=== PATIENT | male | born 1950 | race Caucasian/White ===

== ENCOUNTER → 2018-01-03 12:57 | Outpatient (CLI) | payer OTHER, SELFPAY ==
--- NOTE | 2018-01-03 13:01 | VDLE_ITS ---
Reason For Study: RLE pain (posterior knee) RIGHT LEFT GSV is normal. CFV is compressible, spontaneous, phasic, CFV is compressible, spontaneous, phasic, competent, and demonstrates normal competent and demonstrates normal augmentation. augmentation. FV is compressible, spontaneous, phasic, competent and demonstrates normal augmentation. POP V is compressible, spontaneous, phasic, competent and demonstrates normal augmentation. T/P Trunk is compressible. PTV is compressible. RT PerV is compressible. Procedure Exam performed in department. The exam was diagnostic. A preliminary report was called and/or faxed to Dr. Reyes @ 1:25 pm. Interpretation Summary Deep veins of the right lower extremity are patent and compressible segmentally. There is no evidence of right lower extremity deep vein thrombosis. Valvular competence appears intact within the proximal deep venous system on the right . The right greater saphenous vein appears patent and compressible segmentally. Ordering Physician: Zoë Reyes Referring Physician: Zoë Reyes Performed By: Zahra Peres, NOREEN, RVT
== END ==
PROVIDERS: Family Provider Internal Medicine; PCP Internal Medicine; Visit Provider Internal Medicine
DX: M25.561 Pain in right knee (principal)
CPT/HCPCS: 93971

== ENCOUNTER → 2018-03-06 08:41 | Outpatient (CLI) | payer OTHER, SELFPAY ==
--- NOTE | 2018-03-06 08:45 | CT_ITS ---
STUDY: CT ABDOMEN AND PELVIS WITH CONTRAST REASON FOR EXAM: Male, 67 years old. Left lower quadrant pain. RADIATION DOSAGE (If Supplied By Facility): CTDIvol = ( 9.65 ) mGy, DLP = ( 726.42 ) mGycm TECHNIQUE: Transaxial images were obtained from the dome of the diaphragm to the symphysis pubis with oral contrast. 100ml ml of Isovue 300 contrast was administered. Sagittal and coronal images were reconstructed. Individualized dose optimization techniques were used for this CT. COMPARISON: Comparison is made with prior study dated July 27, 2014. FINDINGS: The visualized lung bases are unremarkable. The visualized portions of the heart are within normal limits. Normal liver. Normal gallbladder and extrahepatic biliary system. Normal spleen. Normal pancreas. Normal bilateral adrenal glands. Normal right kidney. 1 cm cyst in the lateral midportion of the left kidney. Normal visualized stomach. Normal small intestine. There is diverticulosis, with thickening of the colon wall, and pericolonic inflammation changes consistent with acute diverticulitis. No abscess or fluid collection is seen. The appendix is visualized and appears normal. There is scattered atherosclerotic calcification of the abdominal aorta, without a demonstrated aneurysm. Normal inferior vena cava. There is borderline retroperitoneal lymphadenopathy with enlarged nodes no greater than 10mm in the short axis diameter. Normal urinary bladder. There are prostatic calcifications. There is a small umbilical hernia containing fat. Mild anterior listhesis of L4 on L5 with spondylolysis of the pars interarticularis at the L4 vertebrae. CT/Abdomen/Pelvis WITH Contrast IMPRESSION: Findings in keeping with a noncomplicated acute sigmoid diverticulitis. Electronically Signed: Catracho Andrew MD at 11:29 EDT Tel [phone], Service support ,
== END ==
PROVIDERS: Family Provider Internal Medicine; PCP Internal Medicine; Visit Provider Nurse Practitioner Gerontology
DX: K57.32 Diverticulitis of large intestine without perforation or abscess without bleeding (principal)
CPT/HCPCS: 74177; Q9967; A4216

== ENCOUNTER → 2018-04-28 10:22 | Outpatient (CLI) | payer OTHER, SELFPAY ==
[2018-04-28 11:46] LABS: AST(SGOT) 21 U/L (15-37); Alanine Aminotransfer ALT/SGPT 29 U/L (16-61); Albumin, Serum 3.6 g/dL (3.2-5.0); Alkaline Phosphatase 60 U/L (45-117); Bilirubin, Direct 0.08 mg/dL (0.00-0.30); Cholesterol 177 mg/dL (200); Globulin 3.9 g/dL (2.2-4.2); High Density Lipoprotein 45 mg/dL; Protein, Total 7.5 g/dL (6.4-8.2); Triglycerides 167 mg/dL; Very Low Density Lipoprotein 33 mg/dL (5-40)
== END ==
PROVIDERS: Family Provider Internal Medicine; PCP Internal Medicine; Visit Provider Internal Medicine Cardiovascular Disease
DX: E78.5 Hyperlipidemia, unspecified (principal)
CPT/HCPCS: 36415; 80061; 80076

== ENCOUNTER → 2018-06-12 05:55 | Outpatient (CLI) | payer OTHER, SELFPAY | PROVIDERS: Family Provider Internal Medicine; PCP Internal Medicine; Visit Provider Nurse Practitioner | DX: M25.561 Pain in right knee (principal) | CPT/HCPCS: 73721 ==

== ENCOUNTER → 2018-06-20 08:51 | Outpatient (CLI) | payer OTHER, SELFPAY ==
[2018-06-20 11:01] LABS: Pathologist Comment May follow
[2018-06-20 11:22] LABS: Synovial Fld Mononuclear WBC % 85.9 %; Synovial Fld Polynuclear WBC % 14.1 %
[2018-06-20 11:31] LABS: AUTO B FLUID DILUENT BKGD CT WBC <0.1 RBC <0.01 (W<.1,R<.01); RBC /Synovial Fluid 195 /mm3 (0)
[2018-06-20 11:32] LABS: Appearance /Synovial Fluid Clear (CLEAR); Color / Synovial Fluid Yellow (Pale Yellow); Source / Synovial Fluid RT KNEE; Source- Body Fluid SYNOVIAL; Viscosity / Synovial Fluid Sl. Viscous (HIGH)
[2018-06-20 12:30] LABS: Lymph 22 %; Monocyte /Synovial Fluid 6 %; Neutrophil 0 % (0-25); Other Cell /Synovial Fluid 72 %
[2018-06-20 12:31] LABS: Body Fluid QC Type(s) BF2Q,BF3Q
[2018-06-23 12:44] LABS: GLUCOSE, SYNOVIAL FLUID 89 mg/dL (.); PROTEIN, SYNOVIAL FLUID 3.2 g/dL (.)
[2018-06-24 15:41] LABS: Pathologist Review Reviewed
== END ==
PROVIDERS: Family Provider Internal Medicine; PCP Internal Medicine; Visit Provider Orthopaedic Surgery
DX: M17.11 Unilateral primary osteoarthritis, right knee (principal)
CPT/HCPCS: 73564; 82945; 84157; 87070; 87075; 87205; 89050; 89051; 89060

== ENCOUNTER 2018-07-11 08:00 | Outpatient (RCR) | payer OTHER, SELFPAY ==
--- NOTE | 2018-06-11 09:32 | HP.PTEVAL_ITS ---
Patient's Visit Information DENNIS TEMPLE is a 67 year old M referred to Physical Therapy by Marlene Britt with a diagnosis of R knee pain.. Date of Evaluation: 06/11/18 Physical Therapist: Edmundo Elliott DPT, OC - Visit Plan Frequency: 3x /Week Duration: 2-4 Weeks Plan: 3x/week for 2-4 for. R knee ROM, progress to stretching and strengthening , ensure apporp activity modification to heal and progress back to activitiy as tolerated(kneel and stand and stoop to tolerance). ice - Subjective Subjective: Saturday last could not go to wrok and could not put weight through R leg adn could not bend it. Pain was in the knee. Was comfortable at rest. This started back in December and saw Cuong and didn't find anything wrong. Borrowed crutches on Saturday and iced it that day and Saturday and for the weekend. Was able to walk yesterday. Stepping off a curb or stepping over something give hime issues but other ceballos he is good today and yesterday. Pain has been medial and lateral and anterior over the last number of months. It swelled up last Saturday but is much better today. 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 Two weeks ago got worse getting down on knee and turning to get back out from under the table caused pain. sitting down to use bathroom at work and getting up hurt. Usually worse nt he morning but can work itself out after two hours or so. Sleep is fine. Saw [facility] Saturday morning and sent for therapy and ordered MRI tomorrow and will see Manav on 06/20/18. Is off work until Saturday. - Pain R knee Pain Intensity (Out of 10): 0 Pain Intensity Range: 0, 6 Comment: movement restricting transiently 2-15 minutes. - Objective R knee AROM -2 to 100 and L is 0-115. Antalgia with R slightly today with gait but I and trasnitions are I. reflexes 2/3 patella and achilles. strength is 4/ 5 in B LE and hips and knees, R knee ext hurts at end range. Patellar moves wella nd without pain. slight positive R disco test, slight positive bounce home, - anterior drawer, - patella grind, - scour. Some swelling present medial andterior joint. Tender posterior lateral joint line to palpation. - Goals Goal 1:: Full R knee RO?m and no swelling. Goal Time Frame: 4-6 Weeks Goal 2:: Walk without antalgia Goal Time Frame: 4-6 Weeks Goal 3:: Back to work without increased Goal Time Frame: 4-6 Weeks Goal 4:: Pt feel 100% back to normal and be I in management of his knee. Goal Time Frame: 4-6 Weeks - Rehabilitation Potential Physical Therapy Diagnosis: R knee pain possibly meniscus. Rehabilitation Potential: Fair - Anticipated Interventions Patient/Client Instruction: Educate patient on: Condition, Plan of Care For the Purpose of:: To decrease pain, To increase ROM, To improve muscle performance and motor function Therapeutic Exercise to Include: Strength training, Flexibilty training, Gait and locomotor training, Passive ROM, Active ROM Comment: return to work acitivity. For the Purpose of:: To decrease pain, To improve muscle performance and motor function, To improve ability of physical actions for home/community/work/leisure Cryotherapy (ice pack, ice massage): Yes For the Purpose of:: To decrease swelling/inflammation Thank you for the opportunity to evaluate your patient. For Medicare and Medicare HMO plans, please review the plan of care and approve it. It will need to be FAXED BACK to us at [phone] for Medicare purposes. Please let me know if there are questions or concerns regarding this plan of care. Physician Signature: Date:
--- NOTE | 2018-07-11 08:38 | HP.PTDCSUM_ITS ---
HP - PT D/C Summary It has been my pleasure to treat DENNIS TEMPLE under orders from Marlene Britt , for the diagnosis of R knee pain. for a total of 6 visit(s). Discharge Date: 07/11/18 Please see the following information for a summary of their discharge status. - Subjective Subjective: Had two incidences that needed crutches for 3 hours and then it went away. This was after getting down on knees at work. Wasn't locked up but very painful. Couldn't put weight on it. That was last . Saw Dr.. Em 2x. In between these episodes felt pretty good and not limited activity ceballos. Slightly painful but intermittent and not severe. Doctor may want to clean it out if it happens again. Will see her next . Has felt really good the last three days without any issues except minor ache. Is being careful. Been doign exercises at home SOME, every toher day. - Pain R knee Pain Intensity (Out of 10): 0 - Overall Improvement % Improvement: 90 - Objective Objective/Function: Full aROM R knee, strength 5/5 in hip and knee without pain today. Walks withotu antalgia, steps reciprocally with no pain. OVERALL DOING EXCELLENT TODAY AND HOPES TO BUILD CONSISTENCY WITH THAT OVER THE NEXT WEEK BEFORE DOCTOR F/U. SOUNDS LIKE MECHANICAL DERANGEMENT IN KNEE CAUSES HIM INTERMITTENT PROBLEMS FOR SHORTER DURATIONS. - Goals Goal 1:: Full R knee RO?m and no swelling. Goal Progress: Goal Met Goal 2:: Walk without antalgia Goal Progress: met today. Goal 3:: Back to work without increased Goal Progress: intermittent problems Goal 4:: Pt feel 100% back to normal and be I in management of his knee. Goal Progress: Progressing - Plan Plan: D/C to [facility] - D/C Information Discharge Comments: Pt doing well with strength and ROM and function. Has intermittent problems that sound like mechanical derangements but has been as good as ever the last 3-4 days. Will see doctor next week. If there are questions or concerns regarding this patient's physical therapy, please feel free to call me at [phone]. Thank you for the referral of this patient. Sincerely, Edmundo Elliott, DPT, OC
== END 2018-07-11 19:00 | disposition home or self-care (01) ==
LOC: PT 08:00
PROVIDERS: Family Provider Internal Medicine; PCP Internal Medicine; Visit Provider Nurse Practitioner
DX: M25.561 Pain in right knee (principal)
CPT/HCPCS: 97110; 97162; 97530

== ENCOUNTER → 2019-02-17 11:01 | Outpatient (CLI) | payer OTHER, SELFPAY ==
[2019-01-22 10:26] VITALS: BMI 31.1
--- NOTE | 2019-02-17 11:10 | CT_ITS ---
STUDY: CT ABDOMEN AND PELVIS WITH CONTRAST REASON FOR EXAM: Male, 68 years old. Left flank pain and left lower quadrant pain. Recent injury. RADIATION DOSAGE (If Supplied By Facility): CTDIvol = ( 19.42 ) mGy, DLP = ( 1214.94 ) mGycm TECHNIQUE: Transaxial images were obtained from the dome of the diaphragm to the symphysis pubis without oral contrast. 100ml IV Isovue 300 was administered. Sagittal and coronal images were reconstructed. Individualized dose optimization techniques were used for this CT. COMPARISON: Comparison is made with prior study dated March 06, 2018. FINDINGS: Minimal linear scarring and/or atelectasis in the anterior medial aspect of the right lower lobe. The visualized portions of the heart are within normal limits. There is decreased attenuation of the liver consistent with steatosis. Normal gallbladder and extrahepatic biliary system. Normal spleen. Normal pancreas. Normal bilateral adrenal glands. Normal right kidney. Normal left kidney. There is a small hiatal hernia. Normal small intestine. There are scattered colonic diverticula consistent with diverticulosis. The appendix is visualized and appears normal. There is scattered atherosclerotic calcification of the abdominal aorta, without a demonstrated aneurysm. Normal inferior vena cava. There is borderline retroperitoneal lymphadenopathy with enlarged nodes no greater than 10mm in the short axis diameter. Normal urinary bladder. There is enlargement of the prostate gland. Central prostatic calcifications. Normal abdominal wall. Stable anterior listhesis of L4 on L5. CT/Abdomen/Pelvis WITH Contrast IMPRESSION: Fatty infiltration of the liver. No acute abnormality is seen. Electronically Signed: Catracho Andrew, at 12:42 EDT , Service support ,
[2019-02-17 11:26] LABS: CREATININE FINGERSTICK 1.2 mg/dL (0.70-1.30); EGFR FINGERSTICK > 60.0000 mL/min (>60)
--- NOTE | 2019-02-17 11:32 | VDLE_ITS ---
Reason For Study: Leg pain RIGHT LEFT CFV is compressible, spontaneous, phasic, GSV is normal. competent and demonstrates normal CFV is compressible, spontaneous, phasic, augmentation. competent, and demonstrates normal Procedure augmentation. Exam performed in department. FV is compressible, spontaneous, phasic, A preliminary report was called and/or faxed competent and demonstrates normal to Ciesa. augmentation. POP V is compressible, spontaneous, phasic, competent and demonstrates normal augmentation. T/P Trunk is compressible. PTV is compressible. LT PerV is compressible. Interpretation Summary Deep veins of the left lower extremity are patent and compressible segmentally. There is no evidence of left lower extremity deep vein thrombosis. Valvular competence appears intact within the proximal deep venous system on the left . The left greater saphenous vein appears patent and compressible segmentally. Ordering Physician: Marlene Britt Referring Physician: Zoë Reyes M.D. Performed By: Lakshmi Becerra RVT
== END ==
PROVIDERS: Family Provider Internal Medicine; PCP Internal Medicine; Referring Provider Nurse Practitioner; Visit Provider Nurse Practitioner
DX: R10.32 Left lower quadrant pain (principal); M79.605 Pain in left leg; R07.81 Pleurodynia
CPT/HCPCS: 74177; 93971; Q9967

== ENCOUNTER → 2019-02-17 16:07 | Outpatient (CLI) | payer OTHER, SELFPAY ==
[2019-01-22 10:26] VITALS: BMI 31.1
--- NOTE | 2019-02-17 16:25 | RAD_ITS ---
STUDY: X-RAY - UNILATERAL RIBS ( LEFT ) REASON FOR EXAM: Male, 68 years old. Kicked by a horse 5 days ago TECHNIQUE: 3 view(s) of the ribs. COMPARISON: None. FINDINGS: Left rotator cuff repair. Acute fractures of left ribs 9 through 11 are noted. Visualized left lung is well aerated. RAD/Ribs Unil 2V No CXR IMPRESSION: Acute fractures of left ribs 9 through 11 are noted. Electronically Signed: Girish Groves MD at 22:26 EDT Tel , Service support ,
== END ==
PROVIDERS: Family Provider Internal Medicine; PCP Internal Medicine; Referring Provider Nurse Practitioner; Visit Provider Nurse Practitioner
DX: R07.81 Pleurodynia (principal)
CPT/HCPCS: 71100

== ENCOUNTER → 2019-04-29 11:07 | Outpatient (CLI) | payer OTHER, SELFPAY ==
[2019-04-29 10:24] VITALS: BMI 31.1
--- NOTE | 2019-04-29 11:13 | RAD_ITS ---
STUDY: X-RAY - RIGHT KNEE REASON FOR EXAM: Pain. TECHNIQUE: 4 view(s) of the knee. COMPARISON: Radiographs 06/20/2018. FINDINGS: Normal visualized distal femur. Normal visualized proximal tibia and fibula. Normal proximal tibiofibular articulation. There is severe joint space narrowing of the medial femorotibial compartment, increased since the prior study. Normal lateral femorotibial compartment. There are marginal osteophytes and moderate joint space narrowing of the patellofemoral articulation. There is a small joint effusion. RAD/Knee 4 or More Views IMPRESSION: Arthrosis of the medial femorotibial and patellofemoral compartments. Small joint effusion. Electronically Signed: Arya Max MD at 12:15 EDT Tel , Service support ,
== END ==
PROVIDERS: Family Provider Internal Medicine; PCP Internal Medicine; Referring Provider Physician Assistant; Visit Provider Physician Assistant
DX: M17.11 Unilateral primary osteoarthritis, right knee (principal)
CPT/HCPCS: 73564

== ENCOUNTER → 2019-09-07 14:27 | Outpatient (CLI) | payer OTHER, SELFPAY ==
[2019-05-18 10:29] VITALS: BMI 31.1
--- NOTE | 2019-09-07 14:28 | RAD_ITS ---
HISTORY: Pain ADDITIONAL HISTORY: None provided. TECHNIQUE: Left knee 4 views Number of images including paperwork: 4 COMPARISON: None FINDINGS: BONES: No acute fracture. JOINTS: No subluxation. Tricompartmental degenerative changes, severe in the medial and patellofemoral compartments. Small joint effusion. SOFT TISSUES: No distinct foreign body. RAD/Knee 4 or More Views IMPRESSION: Degenerative changes without acute osseous abnormality. Small left knee joint effusion. at 2239 Reported and signed by: Radha Cortez MD Electronically Signed: Radha Cortez MD at 22:39 EST Tel , Service support ,
== END ==
PROVIDERS: Family Provider Internal Medicine; PCP Internal Medicine; Referring Provider Physician Assistant; Visit Provider Physician Assistant
DX: M17.12 Unilateral primary osteoarthritis, left knee (principal)
CPT/HCPCS: 73564

== ENCOUNTER → 2019-11-02 15:32 | Outpatient (CLI) | payer OTHER, SELFPAY ==
[2019-10-28 10:07] VITALS: BMI 31.8
--- NOTE | 2019-11-02 15:32 | CT_ITS ---
STUDY: CT RIGHT KNEE WITHOUT CONTRAST REASON FOR EXAM: Male, 69 years old. LEANNA KNEE--RIGHT RADIATION DOSAGE (If Supplied By Facility): CTDIvol = ( 30.70 ) mGy, DLP = ( 1871.96 ) mGycm TECHNIQUE: Transaxial CT imaging of the knee was performed. Coronal and sagittal images were reformatted. Individualized dose optimization techniques were used for this CT. COMPARISON: None. FINDINGS: Degenerative changes in the medial femoral condyle and medial tibial plateau. There is severe narrowing of the articular joint space of the medial knee compartment. Degenerative changes in the lateral femoral condyle and lateral tibial plateau. There is moderate narrowing of the articular joint space of the lateral knee compartment. Normal proximal tibiofibular articulation. There is moderate joint effusion. The quadriceps tendon is grossly normal. The patellar tendon is grossly normal. Normal Hoffa''s fat pad. Degenerative changes are noted in the right hip joint. The alignment of the osseous structures is anatomic. Mild degenerative changes in the tibiotalar joint and in the lateral malleolus. Anatomic alignment of the osseous structures. CT/Extremity Lower without Contra IMPRESSION: Degenerative osteoarthritis most severe in the medial femorotibial joint. Electronically Signed: Cordell Blount, at 7:50 EST Tel , Service support ,
== END ==
PROVIDERS: Family Provider Internal Medicine; PCP Internal Medicine; Referring Provider Orthopaedic Surgery; Visit Provider Orthopaedic Surgery
DX: M17.11 Unilateral primary osteoarthritis, right knee (principal)
CPT/HCPCS: 73700

== ENCOUNTER 2019-12-01 13:31 | Observation (INO) | payer OTHER, SELFPAY ==
[2019-09-30 15:40] VITALS: BMI 29.9
[2019-10-28 10:07] VITALS: BMI 31.8
[2019-11-17 09:00] VITALS: BP 143/89; PULSE 70; RESP 16; TEMP 36.2; O2SAT 95; BMI 30.9
[2019-12-01] VITALS (13 sets, daily range): BP systolic 110–133; BP diastolic 69–93; PULSE 58–97; RESP 16–18; TEMP 36.2–36.8; O2SAT 91–100; BMI 30.9
[2019-12-01] MEDS: Gabapentin 600 MG Tablet PO (09:52)
[2019-12-01] MEDS: Scopolamine 1mg/72hr Patch 1 PATCH TRANSDERM. (09:52)
[2019-12-01] MEDS: Celecoxib 200 MG Capsule 400 MG PO (09:53)
[2019-12-01] MEDS: Acetaminophen 500 MG Tablet 1000 MG PO ×3 (09:53→22:16)
[2019-12-01] MEDS: Lactated Ringers 1,000 ML 100 ML IV ×2 (10:09→12:45)
[2019-12-01] MEDS: Magnesium Sulfate 4gm/100mL 4 GM/100 ML IV.SOLN. IV (10:10)
[2019-12-01 10:20] LABS: Bedside Glucose 75 mg/dL (70-110)
--- NOTE | 2019-12-01 11:00 | HP.PCM_ITS ---
History and Physical Date of Admission: 12/01/19 Intake Intake Visit Reasons: right knee Accompanied by: Is patient in pain?: Yes Pain scale (1-10): 8 Allergies shellfish derived Allergy (Verified 10/28/19 10:08) Swelling Tyuqsht-Zdm-Rwp Reductase Inhibitor Adverse Reaction (Severe, Verified 10/28/19 10:08) Myalgias Medications aspirin 81 mg tablet,delayed release 81 mg PO QDAY tab 12/30/17 [History Confirmed 11/13/19] metoprolol tartrate 25 mg tablet 25 mg PO BID tab 02/10/18 [History Confirmed 11/13/19] ezetimibe 10 mg tablet 10 mg PO DAILY #90 tab 06/22/19 [Rx Confirmed 11/13/19] PFSH Social History (Updated 10/28/19 @ 11:16 by Vadim Booth DO) alcohol intake: current alcohol intake frequency: holidays/special occasions only details: occasional beer,wine substance use type: does not use caffeine: Yes Type: coffee Number of servings: 1, tea Number of servings: 1 HPI right knee: Details: Parts of this documentation were recorded by a scribe, this documentation accurately reflects the service provided and the decisions made by me, Vadim Booth DO 11/13/19 1124. DENNIS TEMPLE is a 69 year old M here today for iovera tx of right knee. Patient states that he has had the same right knee pain. He states that most of his pain is over the posterior knee. His pain is worse with stairs. Denies numbness, tingling or other associated symptoms. Denies any changes in medications. Patient is also having alot of left knee pain today but states that the right knee is worse. ROS [facility] [place] Reports as per HPI, Reports abnormal walking, Reports joint pain, Reports limited joint movement, Reports radiating pain into limb, Reports stiffness Skin/Breast Reports system reviewed and no additional complaints, except as docu Neuro Yes abnormal walking Office Procedures Iovera Details:: Preoperative diagnosis :OA of the right knee Postoperative diagnosis: Same Procedure: Cryotherapy with Iovera device to anterior femoral cutaneous nerve and 2 branches of the infrapatellar saphenous nerve III nerves in total Description of procedure: Patient was brought back to the procedure room the operative extremity was identified by both patient and physician. The PIP flexion crease was measured to the midpoint of the patella and this distance was divided in 3 resulting in 10 cm location proximal to the midpoint of the patell a. This line was extended medial and lateral to the extent of the edges of the patella. This was our treatment line for the anterior femoral cutaneous nerve. A second treatment line was made 5 cm medial to the inferior pole of the patella and 5 cm distally. The leg was prepped with alcohol and Betadine. Lidocaine with epi was used along the treatment lines. Using the Iovera device treatment lines were treated with 1 minute cycles. Reproduction of paresthesias was monitored in the area of nerve distribution. Once all 3 nerves were treated across the 2 treatment lines patient was cleaned and a light dressing with 4 x 4 and Zachary wrap was applied. Patient tolerated the procedure without complication. Depo-Medrol 40 mg/mL suspension for injection (methylprednisolone acetate) 40 mg intra-articular ONCE Injections Yes Knee Left Details: Obtained consent for injection. Under sterile conditions, injected the patient's left knee with 2cc bupivacaine, 2cc lidocaine and 1cc depomedrol. The patient tolerated the injection well without any noted complication. Patient should call our office if redness develops, pain worsens or if they have any concerns. Office Meds Depo-Medrol Performing Provider: Vadim Booth DO Administered by: Vadim Booth DO on 11/13/19 11:47 Dose Route Admin Location Lot Number Expiration Date [place] Wallpaper Remover Steam 40 mg intra-articular left knee [id number] 09/20/20 5627-8980-07 PHARMACI/PFIZER Assessment & Plan Problems 1. Primary osteoarthritis of right knee M17.11 2. Primary osteoarthritis of left knee M17.12 Plan - Vadim Booth DO Patient educated on the Iovera procedure and he states that he wishes to proceed with the procedure today for his right knee. His right total knee replacement is scheduled for 11/24/2019. Patient educated that since he has increased difficulty with getting off the toilet we can give him a prescription for a toilet seat riser. Educated that he will stay at the hospital over night prior to going home. Patient educated that he will not be able to shower until the Saturday after his surgery and he will not be able to fully submerge his incision in the water until 2-3 after his amy are removed. Educated on the Ice machine. Patient wishes to proceed with steroid injection of the left knee today for his pain. Follow up 2 weeks post op or sooner if pain, swelling, numbness or associated symptoms, or concerns develop. All questions answered. Patient in agreement of plan. Orders Orders: Ortho Injections Today M17.12 Iovera Today M25.569 Coding Diagnoses Primary osteoarthritis of right knee M17.11 Primary osteoarthritis of left knee M17.12 Additional Codes fine arts model.knee () I have re-examined the patient. There are no clinical changes since date of exam
[2019-12-01] MEDS: Cefazolin 2 GM in 0.9% Normal Saline 100 ML IV (11:17)
[2019-12-01] MEDS: dexAMETHasone 10 MG/ML Vial IV (11:39)
[2019-12-01] MEDS: Bupivacaine Mpf 0.5% 30 ML VIAL (13:00)
[2019-12-01] MEDS: Epinephrine (1 mg/ml) 1 MG/ML VIAL (13:00)
[2019-12-01] MEDS: 0.9% Normal Saline (Pres. free 10 ML Vial ×2 (13:00)
[2019-12-01] MEDS: Betamethasone/Betamethasone 30 MG/5 ML Vial (13:00)
--- NOTE | 2019-12-01 13:35 | OP.PCM_ITS ---
Report of Operation Date of Procedure: 12/01/19 Description of Surgical Findings:: Preoperative diagnosis: Right knee DJD Postoperative diagnosis: Same Procedure: Right total knee arthroplasty CT guided Robotic Assisted Implant: Sivan triathlon cemented femoral component size 6, cemented tibial baseplate size 5, cemented asymmetric patella size 35, polyethylene X3 size 9 CS Anesthesia: Spinal with adductor canal block Tourniquet time: 73 minutes at 300 mmHg Complications: None Condition: Stable to PACU Estimated blood loss: 50 cc Indication for procedure: This is a 69-year-old male with long standing degenerative joint disease of the knee who has failed conservative treatment and wished to proceed with elective total knee arthroplasty. Risk benefits and alternatives were reviewed including; risk of bleeding, infection, nerve artery and tissue damage, continued pain, postoperative stiffness, venous thromboembolism, need for postoperative rehabilitation, mechanical feel to the knee, and expected postoperative course. The operative CT and templating was performed with component sizing Procedure: The patient was met in the preoperative holding area. The operative extremity was identified by both patient and physician and was marked. Patient was met by anesthesia. An adductor canal block was placed by anesthesia postoperatively the patient was brought back to the operating room on a wheeled cart and transferred to the operating table in the supine position. Anesthesia was started. A well-padded tourniquet was placed on the operative extremity. The patient was prepped and draped in the usual sterile fashion. A timeout was called to ensure the proper patient procedure and extremity were being contemplated. An Esmarch was used to exsanguinate the extremity. The tourniquet was inflated. A 10 blade scalpel was used to make a midline incision down through the skin and subcutaneous tissue. Skin retractors placed. Bovie was used to perform meticulous hemostasis. full-thickness flaps were elevated medial and lateral along the joint capsule. A deep blade scalpel was used to perform a medial parapatellar arthrotomy. The knee was brought to full extension. A Bovie was used to release the soft tissues off the most proximal aspect of the medial tibial plateau a three-quarter inch curved osteotome was also used for this process. The infrapatellar fat pad was excised. The fat pad was excised partially anterior lateral portion the anterior medial was elevated from the femur. At this point our intra-articular femoral array was placed of a 45 degree angle proximal and posterior to the medial epicondyle. Our tibial array was placed greater than 1 hands breath below the incision at a 20 degree angle stab incisions were used for this case were attached and checked with the robotic software. At this point registration norton were taken throughout the knee as well as checkpoints placed in the femur and tibia once the knee was registered then tensioned the medial and lateral ligaments with curved osteotomes and extension and 90 degrees of flexion. We then used these numbers to adjust our components within parameters to balance the knee in both flexion and extension once this was done on our monitor we then proceeded with using the robotic arm to make our tibial plateau cut and anterior posterior and chamfer cuts on the femur we then trialed and achieved the desired plan with a well- balanced knee. Lug holes were drilled in the femur the tibia preparation was completed with a fin punch and the patella was prepared by first using a caliper to ensure sufficient bone stock and a patellar reamer to remove the desired amount of bone locals were drilled for an asymmetric poly-. We then brought the knee through range of motion with excellent patellar tracking. We thoroughly irrigated the knee with a trial components were removed a posterior capsular injection with her standard cocktail was performed the aqua Chiara was also used to aid in hemostasis. Betadine rinse was allowed to sit and washed out components were press-fit into place. Aricept rinse was then used followed by several more rate liters of irrigation after it was allowed to sit. Joint capsule was closed with #1 Ethibond [id number] followed by Vicryl in the subcutaneous tissues staple in the skin arrays and checkpoints were removed prior to closure all counts were correct stab incisions were closed with a stable standard dressing in the form of Mepilex for the main incision Xeroform 4 x 4 and Tegaderm over pin site holes web roll and Zachary wrap applied from the foot to the groin. Patient tolerated the procedure well she was directed to PACU in stable condition no intraoperative complications
--- NOTE | 2019-12-01 14:07 | RAD_ITS ---
STUDY: X-RAY - RIGHT KNEE REASON FOR EXAM: Male, 69 years old. POST-OP TECHNIQUE: 2 view(s) of the knee. COMPARISON: None. FINDINGS: Status post right knee arthroplasty with patellar implant. Expected postoperative soft tissue changes. No acute fracture or dislocation. No evidence of hardware failure or loosening. RAD/Knee 1 or 2 Views IMPRESSION: As above Electronically Signed: Del Sequeira DO at 15:58 EST Tel , Service support ,
[2019-12-01] MEDS: Cefazolin 1 GM/50 ML BAG IV ×2 (14:22→22:16)
[2019-12-01] MEDS: Lactated Ringers 1,000 ML 125 ML IV (17:02)
[2019-12-01] MEDS: Ketorolac 15 MG/ML Vial IV (20:03)
[2019-12-02] MEDS: Lactated Ringers 1,000 ML 125 ML IV (01:13)
[2019-12-02 02:00] VITALS: BP 106/70; PULSE 78; RESP 16; TEMP 36.5; O2SAT 95
[2019-12-02] MEDS: Acetaminophen 500 MG Tablet 1000 MG PO ×2 (05:32→13:49)
[2019-12-02] MEDS: Cefazolin 1 GM/50 ML BAG IV (05:33)
[2019-12-02] MEDS: APIXABAN 2.5 MG TABLET PO (06:07)
[2019-12-02 06:57] LABS: Hematocrit 36.8 % (40-54); Mean Corp Hgb Conc 32.6 g/dL (32-36); Mean Corpuscular Hgb 29.1 pg (27.0-32.0); Mean Corpuscular Volume 89.1 fL (80-94); Mean Platelet Vol. 10.4 fl (6.2-12.0); Platelet Count 248 K/mm3 (150-450); RBC Distribution Width CV 13.2 % (11.6-14.6); RBC Distribution Width SD 43.1 fl (35.1-43.9); Red Blood Count 4.13 M/mm3 (4.6-6.2); White Blood Count 13.1 K/mm3 (4.4-11.0)
[2019-12-02 07:16] LABS: Anion Gap 5 (5-15); BUN 13 mg/dL (7-18); BUN/Creat Ratio 14.6 RATIO (10-20); Calcium,Total 8.3 mg/dL (8.5-10.1); Chloride 108 mmol/L (98-107); Creatinine, Serum 0.89 mg/dL (0.70-1.30); EST Glomerular Filtration Rate 90 mL/min (>60); Est Glom Filt Rate - Afr Amer 109 mL/min (>60); Estimated Creatinine Clearance 74.72 ml/min; Glucose 177 mg/dL (74-106); Potassium 4.2 mmol/L (3.5-5.1); Sodium Level 140 mmol/L (136-145)
--- NOTE | 2019-12-02 07:26 | DCINST_ITS ---
Discharge Diet: No Restrictions Call your doctor if you observe: Shortness of breath, Chest pain Additional Instructions: Ice and elevate next week while not ambulating. Encourage ambulation weightbearing as tolerated. Encourage FULL knee extension and flexion 1 time EVERY time you get up and down and MULTIPLE times per day. Begin showering postop day #3. Remove the dressing prior to shower gently wash with warm water and antibacterial soap then pat dry place ABD pad and FABRICIO hose over top. This is to be done daily. do not submerge for 3 weeks. If not showering daily must clean incision and change dressing daily. Do not allow animals near incision keep clean. Follow anticoagulation recommendations. Start physical therapy as directed in the hospital. call Dr. Booth with any concerns. Allergies/Adverse Reactions: Allergies shellfish derived Allergy (Verified 12/01/19 09:37) Swelling Vixyicy-Auy-Ehh Reductase Inhibitor Adverse Reaction (Severe, Verified 12/01/19 09:37) Myalgias Medications to take at Discharge aspirin 81 mg tablet,delayed release 81 mg PO QDAY tab 12/30/17 metoprolol tartrate 25 mg tablet 25 mg PO BID tab 02/10/18 ezetimibe 10 mg tablet 10 mg PO DAILY #90 tab 06/22/19 Acetaminophen [Tylenol] 1,000 mg PO Q6H PRN #100 tab 12/02/19 Apixaban [Eliquis] 2.5 mg PO BID #28 tab 12/02/19 Oxycodone [Oxyir] 5 - 10 mg PO Q4H PRN PRN #60 tablet 12/02/19 The following prescriptions were given: Apixaban [Eliquis] 2.5 mg PO BID #28 tab Transmission Status: Pending to [facility] Oxycodone [Oxyir] 5 - 10 mg PO Q4H PRN PRN #60 tablet PRN Reason: Pain Score 4-10/10 Transmission Status: Sent to [facility] Acetaminophen [Tylenol] 1,000 mg PO Q6H PRN #100 tab Transmission Status: Pending to [facility] Primary Care Physician: Zoë Reyes DO [Primary Care Provider] - Test Results: Test results from this visit will be discussed in further detail at your follow- up appointment, if applicable. Please Follow Up With: Vadim Booth DO - 2 weeks
--- NOTE | 2019-12-02 07:27 | DS.PCM_ITS ---
Discharge Date and Diagnosis Date of Admission: 12/01/19 Date of Discharge: 12/02/19 - Secondary Discharge Diagnosis Chronic Problems (Last Reviewed 10/28/19 @ 10:09 by Jerri Cooper) Atherosclerosis of [place] coronary artery of [place] heart without angina pectoris (Chronic) Lt videothoracoscopy with thorascopic mammary mobilization and CHIANG to LAD 10/06/01 Pure hypercholesterolemia (Chronic) Essential (primary) hypertension (Chronic) Cardiomyopathy, dilated (Chronic) Aortocoronary bypass status (Chronic ~10/06/01) Lt videothoracoscopy with thorascopic mammary mobilization and CHIANG to LAD 10/06/01 Long-term use of high-risk medication (Chronic) Hospital Course and Treatment Summary of Care Provided: The patient is a 69 year old M [] Subjective: Doing well pain controlled no complaints - Physical Exam Vitals/I&O's: Vital Signs Temp Pulse Resp BP Pulse Ox 97.7 F L 78 16 106/70 95 12/02/19 02:00 12/02/19 02:00 12/02/19 02:00 12/02/19 02:00 12/02/19 02:00 Oxygen Flow Rate (L/min) 6 Oxygen Delivery Method Room Air Weight: 203 lb 4.259 oz Body Mass Index (BMI) 30.9 Intake and Output for Last 24 Hours 11/30/19 12/01/19 12/02/19 23:59 23:59 23:59 Intake Total 3070.83 / 3070.83 906.25 / 906.25 Output Total 650 / 650 Balance 3070.83 / 2720.83 256.25 / 256.25 General: Alert, Oriented x3, Cooperative, No apparent distress Extremities: - - Dressing clean dry and intact neurovascular intact Laboratory Results 12/01/19 09:50: POC Glucose 75 12/02/19 06:15: WBC 13.1 H, RBC 4.13 L, Hgb 12.0 L, Hct 36.8 L, MCV 89.1, MCH 29.1, MCHC 32.6, RDW Std Deviation 43.1, RDW Coeff of Zuleyma 13.2, Plt Count 248, MPV 10.4 12/02/19 06:15: Sodium 140, Potassium 4.2, Chloride 108 H, Carbon Dioxide 27.0, Anion Gap 5, BUN 13, Creatinine 0.89, Estim Creat Clear Calc 74.72, Est GFR (MDRD) Af Amer 109, Est GFR (MDRD) Non-Af 90, BUN/Creatinine Ratio 14.6, Glucose 177 H, Calcium 8.3 L Current Medications Acetaminophen (Tylenol) 1,000 mg PO Q8 [facility] Last Admin: 12/02/19 05:32 Dose: 1,000 mg Documented by: Apixaban (Eliquis) 2.5 mg PO BID [facility] Last Admin: 12/02/19 06:07 Dose: 2.5 mg Documented by: Hydromorphone HCl (Dilaudid Inj) 0.5 mg IV Q2H PRN PRN PRN Reason: Pain Score 6-10/10 Lactated Ringer's () 1,000 mls @ 125 mls/hr IV .Q8H [facility] Last Infusion: 12/02/19 06:03 Dose: 125 mls/hr Documented by: Cefazolin Sodium () 1 gm in 50 mls @ 100 mls/hr IV Q8H [facility] Stop: 12/02/19 07:29 Last Infusion: 12/02/19 06:03 Dose: Infused Documented by: Insulin Human Lispro (Humalog Kwikpen ([facility])) 1 - 6 unit SC Q4H PRN PRN; Protocol PRN Reason: BG>/= 180, SEE PROTOCOL Ketorolac Tromethamine (Toradol (Bkc)) 15 mg IV Q6H PRN PRN PRN Reason: Pain Score 1-5/10 Stop: 12/03/19 13:33 Last Admin: 12/01/19 20:03 Dose: 15 mg Documented by: Metoprolol Tartrate (Lopressor (Beta Castro)) 25 mg PO BID [facility] Ondansetron HCl (Zofran) 4 mg IV Q6H PRN PRN PRN Reason: NAUSEA Oxycodone HCl (Oxyir) 5 - 10 mg PO Q4H PRN PRN PRN Reason: Pain Score 4-10/10 Senna/Docusate Sodium (Senokot-S, Mindy-Colace) 2 tablet PO BID [facility] Last Admin: 12/01/19 22:19 Dose: Not Given Documented by: Sodium Chloride () 10 - 40 ml IV UD PRN PRN Reason: SALINE FLUSH Discharge Diet: No Restrictions Call your doctor if you observe: Shortness of breath, Chest pain Home Medications: Medications to take at Discharge aspirin 81 mg tablet,delayed release 81 mg PO QDAY tab 12/30/17 metoprolol tartrate 25 mg tablet 25 mg PO BID tab 02/10/18 ezetimibe 10 mg tablet 10 mg PO DAILY #90 tab 06/22/19 Acetaminophen [Tylenol] 1,000 mg PO Q6H PRN #100 tab 12/02/19 Apixaban [Eliquis] 2.5 mg PO BID #28 tab 12/02/19 Oxycodone [Oxyir] 5 - 10 mg PO Q4H PRN PRN #60 tablet 12/02/19 Following Prescrptions Were Given to Patient: Apixaban [Eliquis] 2.5 mg PO BID #28 tab Transmission Status: Pending to [facility] Oxycodone [Oxyir] 5 - 10 mg PO Q4H PRN PRN #60 tablet PRN Reason: Pain Score 4-10/10 Transmission Status: Sent to [facility] Acetaminophen [Tylenol] 1,000 mg PO Q6H PRN #100 tab Transmission Status: Pending to [facility] Primary Care Physician: Zoë Reyes DO [Primary Care Provider] - Please Follow Up With: Vadim Booth DO - 2 weeks Additional Instructions: Ice and elevate next week while not ambulating. Encourage ambulation weightbearing as tolerated. Encourage FULL knee extension and flexion 1 time EVERY time you get up and down and MULTIPLE times per day. Begin showering postop day #3. Remove the dressing prior to shower gently wash with warm water and antibacterial soap then pat dry place ABD pad and FABRICIO hose over top. This is to be done daily. do not submerge for 3 weeks. If not showering daily must clean incision and change dressing daily. Do not allow animals near incision keep clean. Follow anticoagulation recommendations. Start physical therapy as directed in the hospital. call Dr. Booth with any concerns. Medical Necessity - Tobacco Use Smoking Status: Never smoker Tobacco Use: Non-smoker Meaningful Use Info Meaningful Use Diagnoses (Choose all that apply): None applicable
--- NOTE | 2019-12-02 09:40 | CASEMGMT ---
RN TAMY Face to Face with patient for initial transition planning/care coordination assessment. RN CM introduced self and role at [facility]. Patient sitting in chair, alert and oriented, at bedside. Patient willing to participate in assessment and is able to answer all questions appropriately. Care providers, pharmacy, and demographics verified. Patient wishes to discharge home and is setup at [facility] for outpatient therapy. Patient states he has no further needs or concerns at this time. CM to follow for discharge planning needs that may arise. PCP: Eric Specialists: Jeanne Booth Pharmacy: [facility] Insurance: [facility] Prescription Benefit: yes Living Will/HPOA: yes, Kelli Turner LNOK: Living Arrangements: Patient lives with in 1 story home with ramp to enter the home. Transportation: DME/HHC: Patient has shower chair, cane, crutches, walker, and grab bars at home. Patient is setup with [facility] for outpatient therapy. Disposition Plan: Patient to discharge home with outpatient therapy, family support, and follow-up plans in place. Lakshmi MYLES, RN, CM
[2019-12-02 10:14] VITALS: BP 124/63; PULSE 88; RESP 16; TEMP 36.4; O2SAT 95
[2019-12-02] MEDS: Ketorolac 15 MG/ML Vial IV (10:20)
[2019-12-02] MEDS: 0.9% Saline Lock 10 ML Syringe IV (10:21)
[2019-12-02 10:23] VITALS: PULSE 88
[2019-12-02] MEDS: Metoprolol Tartrate 25 MG Tablet PO (10:23)
[2019-12-02] MEDS: oxyCODONE 5 MG Tablet PO (13:50)
[2019-12-02 14:09] VITALS: BP 126/64; PULSE 82; RESP 16; TEMP 36.4; O2SAT 95
== END 2019-12-02 14:11 | disposition home or self-care (01) ==
LOC: MS3 12-02 11:00
PROVIDERS: Admitting Provider Orthopaedic Surgery; Family Provider Internal Medicine; PCP Internal Medicine; Referring Provider Orthopaedic Surgery; Visit Provider Orthopaedic Surgery
PROC: 0SRC0JZ Replacement of Right Knee Joint with Synthetic Substitute, Open Approach (ICD-10-PCS; CPT 27447; principal; 2019-12-01 11:00)
DX: M17.0 Bilateral primary osteoarthritis of knee (principal); E78.00 Pure hypercholesterolemia, unspecified; Z79.899 Other long term (current) drug therapy; Z79.82 Long term (current) use of aspirin; I10 Essential (primary) hypertension; G47.30 Sleep apnea, unspecified; G25.81 Restless legs syndrome; I25.10 Atherosclerotic heart disease of native coronary artery without angina pectoris; Z95.1 Presence of aortocoronary bypass graft
CPT/HCPCS: 01400; 27447; 64447; S2900; 36415; 73560; 80048; 82962; 85027; 87081; 96361; 96365; 96366; 96375; 96376; 97116; 97162; 97166; 97530; 99218; 99251; C1776; J7120; A4216; G0378; G0379; G0463; J0702; J3490

== ENCOUNTER → 2019-12-04 15:25 | Outpatient (CLI) | payer OTHER, SELFPAY ==
[2019-12-01 16:06] VITALS: BMI 30.9
--- NOTE | 2019-12-04 15:29 | US_ITS ---
STUDY: SCROTUM ULTRASOUND REASON FOR EXAM: Male, 69 years old. TENDERNESS IN TESTICLES TECHNIQUE: Ultrasound evaluation of the scrotum was performed with color Doppler and static mullins-scale imaging. COMPARISON: None. FINDINGS: RIGHT TESTICLE INTRATESTICULAR: There is a normal size of the right testicle. The right testicle measures 4.4 x 3.0 x 2.2 cm. There is a homogenous echotexture. There is normal arterial and normal venous vascularity. There is no demonstrated right testicular mass or cyst. EXTRATESTICULAR: The epididymis is normal in size. The epididymis head measures 0.9 x 0.8 x 0.8 cm. There is normal vascularity of the epididymis. There is no demonstrated epididymal cystic structure. There is a moderate size hydrocele. There is no demonstrated varicocele. There is no demonstrated extratesticular mass or cyst. LEFT TESTICLE INTRATESTICULAR: There is a normal size of the left testicle. The left testicle measures 4.3 x 2.7 x 2.2 cm. There is a homogenous echotexture. There is normal arterial and normal venous vascularity. There is no demonstrated left testicular mass or cyst. EXTRATESTICULAR: The epididymis is normal in size. The epididymis head measures 0.6 x 0.8 x 0.9 cm. There is normal vascularity of the epididymis. There is no demonstrated epididymal cystic structure. There is a small hydrocele. There is no demonstrated varicocele. There is no demonstrated extratesticular mass or cyst. US/Testicular with Arterial Flow IMPRESSION: No testicular torsion. Moderate right hydrocele and small left hydrocele. Electronically Signed: Brendon Tejada MD at 16:58 EST Tel , Service support ,
--- NOTE | 2019-12-04 15:30 | US_ITS ---
STUDY: RENAL ULTRASOUND - COMPLETE REASON FOR EXAM: Male, 69 years old. FREQUENT URINATION TECHNIQUE: Ultrasound evaluation of the kidneys was performed with real-time and static medellin-scale imaging. COMPARISON: None. FINDINGS: RIGHT KIDNEY: Normal location of the right kidney, which is normal in size. The right kidney measures 10.4 cm. There is a normal cortex of the right kidney. The renal cortex measures 1.4 cm. There is no right renal mass or cyst. There are no right renal calculi. There is no right hydronephrosis. DISTAL RIGHT URETER: There is non-visualization of the distal right ureter. There is no demonstrated right ureterovesical junction calculus. There is a visualized right ureteral jet. LEFT KIDNEY: Normal location of the left kidney, which is normal in size. The left kidney measures 11.2 cm. There is a normal cortex of the left kidney. The renal cortex measures 1.9 cm. 1 cm exophytic cyst in the midsection the left kidney. There are no left renal calculi. There is no left hydronephrosis. DISTAL LEFT URETER: There is non-visualization of the distal left ureter. There is no demonstrated left ureterovesical junction calculus. There is a visualized left ureteral jet. BLADDER: The distended urinary bladder has a volume of 349 ml. The empty urinary bladder has a volume of 3:15 ml. There is a normal wall thickness of the distended urinary bladder. There is no demonstrated mass within the urinary bladder. There are no demonstrated bladder calculi. US/Kidney and Bladder IMPRESSION: 1. Normal ultrasound of the kidneys. 2. Significant post void residual possibly from benign prostatic hyperplasia. Electronically Signed: Brendon Tejada MD at 17:01 EST Tel , Service support ,
== END ==
PROVIDERS: PCP Internal Medicine; Referring Provider Nurse Practitioner; Visit Provider Nurse Practitioner
DX: R35.0 Frequency of micturition (principal)
CPT/HCPCS: 76770; 76870; 93976

== ENCOUNTER 2020-01-15 06:04 | Day surgery (SDC) | payer OTHER, SELFPAY ==
[2020-01-11 15:08] VITALS: BMI 30.9
[2020-01-15 06:28] VITALS: BP 126/78; PULSE 78; RESP 18; TEMP 36.9; O2SAT 98; BMI 29.9
[2020-01-15] MEDS: Lactated Ringers 1,000 ML 100 ML IV ×2 (06:38→07:50)
--- NOTE | 2020-01-15 07:10 | HP.PCM_ITS ---
History and Physical Date of Admission: 01/15/20 Intake Vital Signs 01/11/20 BMI 30.9 Intake Visit Reasons: RIGHT KNEE Allergies shellfish derived Allergy (Verified 12/01/19 09:37) Swelling Qaqbmgk-Axg-Kta Reductase Inhibitor Adverse Reaction (Severe, Verified 12/01/19 09:37) Myalgias [facility] Social History (Updated 01/11/20 @ 16:[address] Vadim Booth DO) Smoking Status: Never smoker alcohol intake: current alcohol intake frequency: holidays/special occasions only details: occasional beer,wine substance use type: does not use caffeine: Yes Type: coffee Number of servings: 1, tea Number of servings: 1 HPI RIGHT KNEE: Details: Parts of this documentation were recorded by a scribe, this documentation accurately reflects the service provided and the decisions made by me, Vadim Booth DO 01/11/20 [id number]. DENNIS TEMPLE is a 69 year old M here today for s/p right knee TKA robotic assisted dos 12/01/19. He states that his knee is stiff and he is able to get knee flexion to 107 degrees. Patient notes that his PT was canceled for the next 2 weeks due to the coronavirus. He denies any pain currently. Patient denies any knee swelling. His incision is healed. Patient removed the stocking yesterday. He ambulates into the clinic with no assistive device. He uses a cane for stairs. ROS Musc Denies numbness, Reports stiffness, Denies tingling Neuro No numbness, No tingling Ortho Exam Right Knee Skin/Wound: No erythema, No ecchymosis, Yes swelling Homans Sign: No Knee ROM: Yes ROM-Extension -20 to 0 (full), Yes ROM-Flexion 0-140 (92) Assessment & Plan Problems 1. Stiffness of right knee M25.661 2. Orthopedic aftercare Z47.89 3. Arthrofibrosis of total knee replacement, subsequent encounter T84.82XD Plan Spoke with the patient about the benefits of a knee manipulation under anesthesia. Recommended he have to procedure sooner than later due to stiffness and less risks. Our office will contact the patient with a plan. Follow up 1 month after procedure or sooner if pain, swelling, numbness or associated symptoms, or concerns develop. All questions answered. Patient in agreement of plan. Coding Level of Care Code Global Post Op Diagnoses Stiffness of right knee M25.661 Orthopedic aftercare Z47.89 Arthrofibrosis of total knee replacement, subsequent encounter T84.82XD ??Encounter type: subsequent encounter I have re-examined the patient. There are no clinical changes since date of exam
[2020-01-15] MEDS: Cefazolin 2 GM in 0.9% Normal Saline 100 ML IV (07:22)
[2020-01-15] MEDS: Bupiv/Epi 0.25% 30 ML Vial (07:35)
[2020-01-15] MEDS: MethylPREDNISolone Acetate 80 MG/ML Vial (07:35)
[2020-01-15 07:43] VITALS: BP 126/78; BP 128/86; PULSE 80; RESP 16; TEMP 36.8; O2SAT 92
--- NOTE | 2020-01-15 07:49 | DCINST_ITS ---
Discharge Diet: No Restrictions Weight Bearing Status: Full weight bearing Additional Instructions: Weightbearing as tolerated. Encourage full knee extension and flexion immediately. Resume physical therapy immediately. Pain medication as prescribed. May shower. Call with any concerns. Allergies/Adverse Reactions: Allergies shellfish derived Allergy (Verified 01/15/20 06:20) Swelling Ipdteha-Ygr-Bzt Reductase Inhibitor Adverse Reaction (Severe, Verified 01/15/20 06:20) Myalgias Medications to take at Discharge aspirin 81 mg tablet,delayed release 81 mg PO QDAY tab 12/30/17 metoprolol tartrate 25 mg tablet 25 mg PO BID tab 02/10/18 ezetimibe 10 mg tablet 10 mg PO DAILY #90 tab 06/22/19 Oxycodone [Oxyir] 5 - 10 mg PO Q4H PRN PRN #60 tab 12/02/19 Acetaminophen [Tylenol] 1,000 mg PO Q6H 01/13/20 Oxycodone [Oxyir] 5 mg PO Q4H PRN PRN #60 tablet 01/15/20 Tamsulosin HCl 0.4 mg PO DAILY 01/15/20 The following prescriptions were given: Oxycodone [Oxyir] 5 mg PO Q4H PRN PRN #60 tablet PRN Reason: Pain Score 1-5/10 Transmission Status: Sent to [facility] Primary Care Physician: Zoë Reyes DO [Primary Care Provider] - Test Results: Test results from this visit will be discussed in further detail at your follow- up appointment, if applicable. Please Follow Up With: Vadim Booth DO - 4 weeks
--- NOTE | 2020-01-15 07:50 | OP.PCM_ITS ---
Report of Operation Date of Procedure: 01/15/20 Description of Surgical Findings:: Preoperative diagnosis: Arthrofibrosis right knee Postoperative diagnosis: Same Procedure: Manipulation under anesthesia [with intra-articular steroid injection] Anesthesia: General EBL: None Complications: None Condition: Able to PACU Indication for procedure: This is a 69-year-old male who underwent total knee arthroplasty approximately 6 weeks ago who is failed to gain her range of motion wish to undergo an elective manipulation under anesthesia to increase range of motion. risk benefits and alternatives were reviewed including risk of bleeding infection nerve, artery, bone, tissue damage, blood clot need for further gladys jennifer and continued pain. Procedure: Patient was met in the preoperative holding area once again the operative extremity was identified by both patient and physician and was marked. Patient was brought back to the operating room anesthesia was started. A timeout was called into the proper patient procedure and extremity were being contemplated. The operative range of motion was near full extension extension and achieving 85 degrees flexion and checked supine on the operating room table. After patient was adequately anesthetized extension manipulation was performed followed by patellar mobilization followed by gradual flexion scar tissue was palpated being released with no concerning signs for tendon rupture or fracture. Postoperative range of motion was much improved with full extension and 110 degrees of flexion With gravity, and 125 actively Following the manipulation using sterile technique from the superior lateral position an intra-articular injection with 40 mg of depomedrol and 8 cc 0.25%marcaine with epi was injected. bandaid applied
[2020-01-15 07:51] VITALS: BP 118/82; BP 126/78; PULSE 78; RESP 17; O2SAT 94
[2020-01-15 08:03] VITALS: BP 126/78; BP 96/85; PULSE 77; RESP 16; O2SAT 95
[2020-01-15 08:10] VITALS: BP 126/78; BP 132/84; PULSE 77; RESP 16; TEMP 37.1; O2SAT 95
[2020-01-15 09:05] VITALS: BP 117/66; BP 126/78; PULSE 73; RESP 18; TEMP 36.8; O2SAT 95
== END 2020-01-15 09:17 | disposition home or self-care (01) ==
LOC: SDC 06:05 → AC 06:05
PROVIDERS: PCP Internal Medicine; Referring Provider Orthopaedic Surgery; Visit Provider Orthopaedic Surgery
PROC: (CPT 27570; principal; 2020-01-15 07:25)
DX: T84.82XA Fibrosis due to internal orthopedic prosthetic devices, implants and grafts, initial encounter (principal); M25.661 Stiffness of right knee, not elsewhere classified; Z96.651 Presence of right artificial knee joint; I10 Essential (primary) hypertension; Z95.1 Presence of aortocoronary bypass graft; Z79.82 Long term (current) use of aspirin
CPT/HCPCS: 27570; J7120

== ENCOUNTER 2020-01-25 09:00 | Outpatient (RCR) | payer OTHER, SELFPAY ==
[2020-01-11 15:08] VITALS: BMI 30.9
--- NOTE | 2020-01-18 09:59 | HP.PTEVAL ---
Patient's Visit Information DENNIS TEMPLE is a 69 year old M referred to Physical Therapy by Vadim Booth DO with a diagnosis of R TKA post manipulation. Date of Evaluation: 01/18/20 Physical Therapist: Ike Lao, PT, ATC - Visit Plan Frequency: 1x/Week Duration: 1 Week Plan: Issue and instruct pt on HEP of core and R LE strengthening - Subjective Subjective: DOS: Pt reports he had R TKA performed 7 weeks ago. Pt reports he had PT at [facility] but had to get a manipulation performed secondary to lack of ROM. Pt had his manipulation performed 3 days ago, and notes he has less pain than prior to manipulation. Pt notes he is performing ex's at home for over one hour a day. Pt reports his pain has lessened and he feels much better since manipulation. No tingling or numbness in R knee. No sleep difficulty secondary to pain. Pt reports his goal is to get a HEP to complete on his own while this pandemic is going on. 0/10 pain at rest, 4/10 pain with stretching. - Pain R knee Pain Intensity (Out of 10): 0 Pain Intensity Range: 4 - Objective Neuro: B LE sensation is WNL to light touch. Girth at joint line: L knee 38 cm, R knee 39 cm. ROM: L knee 0-5-105; R knee 0-10-87. MMT: R knee 3/5, L knee 5/5 throughout - Goals Goal 1:: I with HEP Goal Time Frame: 1 Week - Rehabilitation Potential Physical Therapy Diagnosis: Pt has R knee pain, weakness, and limited ROM secondary to TKA post manip R knee Rehabilitation Potential: Good - Anticipated Interventions Patient/Client Instruction: Educate patient on: Condition, Plan of Care For the Purpose of:: To improve self management Therapeutic Exercise to Include: Strength training, Balance training, Flexibilty training, Active ROM, Dynamic Lumbar Stabilization For the Purpose of:: To decrease pain, To increase ROM, To improve muscle performance and motor function Thank you for the opportunity to evaluate your patient. For Medicare and Medicare HMO plans, please review the plan of care and approve it. It will need to be FAXED BACK to us at [phone] for Medicare purposes. For Medicare only, by signing this I certify the plan of care. Please let me know if there are questions or concerns regarding this plan of care. Physician Signature: Date:
--- NOTE | 2020-01-25 10:03 | HP.PTDCSUM ---
It has been my pleasure to treat DENNIS TEMPLE referred by Vadim Booth DO, with the diagnosis of R TKA post manipulation for a total of 2 visit(s). Discharge Date: Please see the following information for a summary of their discharge status. Subjective: Only mild pain this morning. Had a little setback secondary to being constipated from pain meds R knee Pain Intensity (Out of 10): 2 Objective/Function: Pt is I with HEP Goal 1:: I with HEP Goal Progress: Goal Met Plan: Discharge If there are questions or concerns regarding this patient's physical therapy, please feel free to call me at [phone]. Thank you for the referral of this patient. Sincerely, Ike Lao, PT, ATC
== END 2020-01-25 13:33 | disposition home or self-care (01) ==
LOC: PT 09:00
PROVIDERS: PCP Internal Medicine; Referring Provider Orthopaedic Surgery; Visit Provider Orthopaedic Surgery
DX: T84.82XD Fibrosis due to internal orthopedic prosthetic devices, implants and grafts, subsequent encounter (principal)
CPT/HCPCS: 97110; 97161

== ENCOUNTER → 2020-08-16 06:23 | Outpatient (CLI) | payer MEDICARE, OTHER, SELFPAY ==
[2020-07-25 15:42] VITALS: BMI 31.2
--- NOTE | 2020-08-16 07:56 | STRESSREP ---
Stress Test Report Date: 08-16-2020 Procedure: Pharmacologic stress nuclear imaging study Indications: CAD status post CABG Consent: Per the patient Procedure: The patient underwent pharmacologic (Regadenoson) evaluation with a peak heart rate of 112 beats per minute (74%predicted maximal heart rate) and a peak blood pressure of 144/90 mmHg. The baseline ECG demonstrated sinus rhythm. The peak pharmacologic ECG demonstrated no obvious ECG changes. There were no cardiac dysrhythmias pretest, during pharmacologic infusion, or recovery. There was no complaint of chest discomfort during pharmacologic infusion or recovery. The examination was discontinued secondary to completion of protocol. Impression: 1. Pharmacologic (Regadenoson) evaluation 2. Peak pharmacologic ECG with no obvious ECG changes. 3. There were no cardiac dysrhythmias pretest, during pharmacologic infusion, or recovery. 4. Nuclear images pending Myocardial perfusion imaging study: Technique: The patient was injected with 12.0 millicuries of technetium 99m Cardiolite and subsequently rest SPECT Cardiolite nuclear imaging was obtained in the horizontal long, vertical long, and short axis views. The patient underwent pharmacologic (Regadenoson) evaluation with a peak heart rate of 112 beats per minute (74% percent predicted maximal heart rate) and a peak blood pressure of 144/90 mmHg. The patient was injected with 35.0 millicuries of technetium 99m Cardiolite and subsequently stress SPECT Cardiolite nuclear imaging was obtained in the horizontal long, vertical long, and short axis views. A gated Cardiolite study at peak stress was obtained. Interpretation: Rest and stress SPECT Cardiolite nuclear imaging status post realignment, normalization, and attenuation correction demonstrate the appearance of a small area of subtle diminished tracer uptake near the apical segments without significant change between rest and stress. There is end systolic thickening and brightening. The gated Cardiolite study demonstrates myocardial thickening and inward wall motion. The reported LVEF is 69%. Impression: 1. Rest and stress SPECT Cardiolite nuclear imaging demonstrate myocardial perfusion changes appearing compatible with physiologic apical thinning with no myocardial perfusion changes considered diagnostic for associated stress-induced myocardial ischemia. 2. The gated Cardiolite study reports an LVEF of 69%. This note was generated with [employer] software. It may contain incorrect words, spelling, and punctuation that were not noted in checking the note before signing.
== END ==
PROVIDERS: PCP Internal Medicine; Referring Provider Internal Medicine Cardiovascular Disease; Visit Provider Internal Medicine Cardiovascular Disease
DX: I25.10 Atherosclerotic heart disease of native coronary artery without angina pectoris (principal); Z95.1 Presence of aortocoronary bypass graft
CPT/HCPCS: 78452; 93017; A9500; A4216; J2785

== ENCOUNTER → 2020-09-30 13:21 | Outpatient (CLI) | payer MEDICARE, OTHER, SELFPAY ==
[2020-09-07 08:17] VITALS: BMI 32.0
--- NOTE | 2020-09-30 13:27 | CT_ITS ---
STUDY: CT SCAN LOWER EXTREMITY LEFT REASON FOR EXAM: Male, 69 years old. Left knee BELKIS. Prior rt knee belkis RADIATION DOSAGE (If Supplied By Facility): CTDIvol = ( 38.89 ) mGy, DLP = ( 1109.55 ) mGycm. Individualized dose optimization techniques were used for this CT.? TECHNIQUE: Multiple axial tomographic images of the right hip joint, knee joint and ankle joint were obtained. Sagittal and coronal reconstruction was obtained as well. COMPARISON: None. FINDINGS: Imaging of the left hip joint demonstrates no significant abnormality. Incidental note is made of prostatic enlargement with the prostatic calcifications. Marked degree of joint space narrowing involving the medial compartment of the knee joint. Degenerative spurs are seen along the medial femoral condyle and medial tibial plateau as well as the lateral tibial plateau and lateral femoral condyle. There is evidence of an avulsion fracture of the tibial spine. The ankle joint was examined. No significant abnormality is seen. CT/Extremity Lower without Contra IMPRESSION: Moderate degree of joint space narrowing with degenerative changes involving the medial compartment of the knee joint. Electronically Signed: Catracho Andrew, at 14:46 EST , Service support ,
== END ==
PROVIDERS: PCP Internal Medicine; Referring Provider Orthopaedic Surgery; Visit Provider Orthopaedic Surgery
DX: M17.12 Unilateral primary osteoarthritis, left knee (principal)
CPT/HCPCS: 73700

== ENCOUNTER 2020-10-25 07:10 | Day surgery (SDC) | payer MEDICARE, OTHER, SELFPAY ==
[2020-09-07 08:17] VITALS: BMI 32.0
--- NOTE | 2020-10-10 10:18 | EKG12_ITS ---
Test Reason : PRE OP Blood Pressure : / mmHG Vent. Rate : 069 BPM Atrial Rate : 069 BPM P-R Int : 164 ms QRS Dur : 096 ms QT Int : 368 ms P-R-T Axes : 055 074 033 degrees QTc Int : 394 ms Normal sinus rhythm Abnormal ECG Confirmed by NIEVES SORIA, LEONEL ([id number]), multimedia editor LAURE DUNCAN ([id number]) on 10/11/2020 11:05:35 AM Referred By: Vadim Booth Confirmed By:LEONEL PICKETT MD
[2020-10-10 11:34] LABS: Absolute Lymphocyte Count 2.06 X10^3/uL (0.83-4.51); Basophil# 0.07 X10^3/uL; Eosinophil# 0.29 X10^3/uL; Eosinophils% 4.1 % (0-5); Hematocrit 45.4 % (40-54); Lymphocyte # 2.06 X10^3/ul (4.0); Mean Corp Hgb Conc 30.8 g/dL (32-36); Mean Corpuscular Hgb 27.4 pg (27.0-32.0); Mean Corpuscular Volume 88.8 fL (80-94); Mean Platelet Vol. 10.6 fl (6.2-12.0); Monocyte# 0.67 X10^3/uL; Monocyte% 9.4 % (0-10); NRBC Flagged by Analyzer 0 % (0-5); Neutrophil # 4.01 X10^3/uL (2.7-7.7); Neutrophil % 56.4 % (47-70); Platelet Count 246 K/mm3 (150-450); RBC Distribution Width CV 13.8 % (11.6-14.6); RBC Distribution Width SD 44.9 fl (35.1-43.9); Red Blood Count 5.11 M/mm3 (4.6-6.2); White Blood Count 7.1 K/mm3 (4.4-11.0)
[2020-10-10 11:54] LABS: Prothrombin Time (Protime)PT. 12.4 SECONDS (11.7-14.9)
[2020-10-10 11:55] LABS: Partial Thromboplast Time 28.7 Seconds (24.1-36.2)
[2020-10-10 12:05] LABS: Anion Gap 4 (5-15); BUN 18 mg/dL (7-18); BUN/Creat Ratio 20.9 RATIO (10-20); Calcium,Total 9.3 mg/dL (8.5-10.1); Chloride 106 mmol/L (98-107); Creatinine, Serum 0.86 mg/dL (0.70-1.30); EST Glomerular Filtration Rate 93 mL/min (>60); Est Glom Filt Rate - Afr Amer 113 mL/min (>60); Glucose 77 mg/dL (74-106); Potassium 4.2 mmol/L (3.5-5.1); Sodium Level 139 mmol/L (136-145)
[2020-10-11 08:13] LABS: Magnesium 2.5 mg/dL (1.6-2.6)
[2020-10-25] VITALS (9 sets, daily range): BP systolic 86–133; BP diastolic 57–86; PULSE 63–94; RESP 15–18; TEMP 36.2–36.8; O2SAT 95–99; BMI 30.2
[2020-10-25] MEDS: Lactated Ringers 1,000 ML 999 ML IV (07:00)
--- NOTE | 2020-10-25 07:45 | PCM.HP.BLA ---
History and Physical Date of Admission: 10/25/20 Intake Intake Visit Reasons: left knee Is patient in pain?: Yes Allergies shellfish derived Allergy (Verified 10/10/20 10:53) Swelling Cjuisga-Lsr-Aqq Reductase Inhibitor Adverse Reaction (Severe, Verified 10/10/20 10:53) Myalgias Medications aspirin 81 mg tablet,delayed release 81 mg PO QDAY tab 12/30/17 [History Confirmed 10/10/20] metoprolol tartrate 25 mg tablet 25 mg PO BID tab 02/10/18 [History Confirmed 10/10/20] ezetimibe 10 mg tablet 10 mg PO DAILY #90 tab 06/22/19 [Rx Confirmed 10/10/20] Tamsulosin HCl 0.4 mg PO DAILY 01/15/20 [History Confirmed 10/10/20] [facility] Medical History Atherosclerosis of [place] coronary artery of [place] heart without angina pectoris (Chronic) Pure hypercholesterolemia (Chronic) Essential (primary) hypertension (Chronic) Cardiomyopathy, dilated (Chronic) Long-term use of high-risk medication (Chronic) BPH (benign prostatic hyperplasia) (Chronic) Diverticulitis (Chronic) RENZO (obstructive sleep apnea) (Chronic) Surgical History (Updated 07/25/20 @ 15:48 by Jerri Cooper) Aortocoronary bypass status (Chronic ~10/06/01) History of arthroscopic knee surgery (Resolved) History of rotator cuff surgery (Resolved) History of shoulder surgery (Resolved ~02/2019) History of total right knee replacement (Resolved ~11/2019) Family History Father CAD (coronary artery disease) Myocardial infarction Diabetes Mother Hypertension CHF (congestive heart failure) COPD (chronic obstructive pulmonary disease) Brother Myocardial infarction, Onset Age: 58 Diabetes Social History (Updated 10/10/20 @ 16:[address] Vadim Booth, DO) Smoking Status: Never smoker alcohol intake: current alcohol intake frequency: holidays/special occasions only details: occasional beer,wine substance use type: does not use caffeine: Yes Type: coffee Number of servings: 1, tea Number of servings: 1 HPI left knee: Details: Parts of this documentation were recorded by a scribe, this documentation accurately reflects the service provided and the decisions made by me, Dr. Vadim Booth, DO 10/10/20 0752. DENNIS TEMPLE is a 69 year old M here today for left knee IOVERA treatment. Patient continues to have difficulty with ambulation and left knee pain. Denies numbness, tingling or other associated symptoms. Patient was told by his urologist Dr. Aguirre that he can take 2 tabs of the tamsulosin prior to surgery an after wards d/t his issues after the last surgery with frequent urination. Ortho Exam General General: Yes no acute distress Neurologic: Yes alert Psychologic: Yes reasonable and appropriate Right Knee Patella Translation: 1 Left Knee Skin/Wound: No ecchymosis, No erythema, No swelling Knee ROM: Yes ROM-Flexion 0-140 (68) Examination: Yes med jt line tenderness, No Lat jt line tenderness Quad Atrophy: No Stability: NML: Anterior Drawer, NML: Posterior Drawer, NML: Varus 0, NML: Varus 30, 1+: Valgus 30 (4mm medial gapping) Apprehension with Lateral Translation: No Patella Translation: 1 Patellar Tilt Normal: No Patella Grind: Yes KNEE: faint joint effusion lack 15 degree extension varus deformity no varus instability pitting edema at tibial tubercle Dorsiflexion plantarflexion intact Office Procedures Iovera Details:: Preoperative diagnosis :osteoarthritis of left knee Postoperative diagnosis: Same Procedure: Cryotherapy with Iovera device to anterior femoral cutaneous nerve and 2 branches of the infrapatellar saphenous nerve III nerves in total Description of procedure: Patient was brought back to the procedure room the operative extremity was identified by both patient and physician. The PIP flexion crease was measured to the midpoint of the patella and this distance was divided in 3 resulting in 10 cm location proximal to the midpoint of the patella. This line was extended medial and lateral to the extent of the edges of the patella. This was our treatment line for the anterior femoral cutaneous nerve. A second treatment line was made 5 cm medial to the inferior pole of the patella and 5 cm distally. The leg was prepped with alcohol and Betadine. Lidocaine with epi was used along the treatment lines. Using the Iovera device treatment lines were treated with 1 minute cycles. Reproduction of paresthesias was monitored in the area of nerve distribution. Once all 3 nerves were treated across the 2 treatment lines patient was cleaned and a light dressing with 4 x 4 and Zachary wrap was applied. Patient tolerated the procedure without complication. Supplemental Info 09/07/2019 x-ray left knee [id number] varus deformity 04/29/2019 x-ray: Vkuw-tb-hrgm medial compartment varus deformity moderate spurring throughout knee Assessment & Plan Problems 1. Chronic pain of left knee M25.562; G89.29 Plan Patient educated that he has OA of his left knee and his treatment options are do nothing or steroid injection or gel injections or bracing or PT or left TKA. Risks, benefits and alternatives of surgery reviewed including but not limited to bleeding, infection, nerve, artery and/or tissue damage, fracture, VTE, mechanical feel of the knee, continued pain, stiffness and expected post-operative course. Patient signed surgery consent today and is here for IOVERA treatment of the left knee. Patient instructed to contact Dr. Aguirre to determine if can start doubling the Tamsulosin 7 days prior to surgery. Follow up 2 weeks post op or sooner if pain, swelling, numbness or associated symptoms, or concerns develop. All questions answered. Patient in agreement of plan. Orders Orders: Iovera Today M25.569 Coding Level of Care Code Off vis,est,level 3 Diagnoses Chronic pain of left knee M25.562; G89.29 ??Chronicity: chronic I have re-examined the patient. There are no clinical changes since date of exam Procedure Criteria Procedure Type: Elective COVID Risk Discussion: The surgeon/proceduralist and patient have discussed in detail the risk of exposure to and/or potential harm posed by the COVID-19 virus with having a surgery/procedure at this time versus the risk of delaying the surgery/procedure. It is not possible to know either the risk of delaying the surgery or procedure or chance of getting an infection with perfect accuracy, but a joint decision was made between the patient and the surgeon/proceduralist to proceed at this time with the scheduled surgery/procedure as indicated on the consent form.
[2020-10-25 08:01] LABS: Bedside Glucose 80 mg/dL (70-110)
[2020-10-25] MEDS: Gabapentin 600 MG Tablet PO (08:03)
[2020-10-25] MEDS: Acetaminophen 500 MG Tablet 1000 MG PO ×2 (08:03→14:18)
[2020-10-25] MEDS: Celecoxib 200 MG Capsule 400 MG PO (08:03)
[2020-10-25] MEDS: Scopolamine 1mg/72hr Patch 1 PATCH TD (08:04)
[2020-10-25] MEDS: Cefazolin 2 GM in 0.9% Normal Saline 100 ML IV (09:33)
[2020-10-25] MEDS: dexAMETHasone 10 MG/ML Vial IV (09:50)
[2020-10-25] MEDS: Lactated Ringers 1,000 ML 125 ML IV (11:45)
--- NOTE | 2020-10-25 11:50 | DCINST_ITS ---
Discharge Diet: No Restrictions Weight Bearing Status: Weight bearing as tolerated Call your doctor if you observe: Shortness of breath, Chest pain Additional Instructions: Ice and elevate one week while not ambulating. Ambulation is encouraged. Weightbearing as tolerated. Use assistive devise for stability. Encourage FULL knee extension and flexion 1 time EVERY time you get up and down and MULTIPLE times per day. No showering 72 hours after surgery. Begin showering postop day #3. Remove the dressing prior to shower and gently wash with warm water and antibacterial soap then pat dry and place abdominal pad (or plain gauze) and FABRICIO hose over top. This is to be done daily. Do not submerge for 3 weeks. If not showering daily after the initial 72 hours then you must clean incision and change dressing daily. Do not allow animals near the incision area. Keep clean. Follow anticoagulation recommendations as prescribed. Do not take any NSAIDs while on blood thinner. Do not take any additional narcotic pain medication other than what was prescribed on you surgery day without discussing with physician. Start physical therapy. If you are not currently scheduled for physical therapy or you are unsure of appointment time please call office [facility] to arrange. Call Dr. Booth with any concerns. Allergies/Adverse Reactions: Allergies shellfish derived Allergy (Verified 10/25/20 08:01) Swelling Ofkrzdq-Wfc-Cnh Reductase Inhibitor Adverse Reaction (Severe, Verified 10/25/20 08:01) Myalgias Medications to take at Discharge aspirin 81 mg tablet,delayed release 81 mg PO QDAY tab 12/30/17 metoprolol tartrate 25 mg tablet 25 mg PO BID tab 02/10/18 ezetimibe 10 mg tablet 10 mg PO DAILY #90 tab 06/22/19 Tamsulosin HCl 0.4 mg PO DAILY 01/15/20 Acetaminophen [Tylenol Extra Strength] 1,000 mg PO Q6H PRN #100 tab 10/25/20 Apixaban [Eliquis] 2.5 mg PO BID #30 tab 10/25/20 Cephalexin [Keflex] 1,000 mg PO Q8 #4 cap 10/25/20 Oxycodone [Oxyir] 5 mg PO Q4H PRN PRN #60 tablet 10/25/20 The following prescriptions were given: Apixaban [Eliquis] 2.5 mg PO BID #30 tab Transmission Status: Pending to [facility] Cephalexin [Keflex] 1,000 mg PO Q8 #4 cap Transmission Status: Pending to [facility] Oxycodone [Oxyir] 5 mg PO Q4H PRN PRN #60 tablet PRN Reason: Pain Score 6-10 Transmission Status: Sent to [facility] Acetaminophen [Tylenol Extra Strength] 1,000 mg PO Q6H PRN #100 tab Transmission Status: Pending to [facility] Orders to be completed after discharge: Magnesium Time Frame: 10/10/20, Facility: [facility], Location: Laboratory Primary Care Physician: Zoë Reyes DO [Primary Care Provider] - Test Results: Test results from this visit will be discussed in further detail at your follow- up appointment, if applicable. Please Follow Up With: Vadim Booth DO - 2 weeks
--- NOTE | 2020-10-25 11:51 | OP.PCM_ITS ---
Report of Operation Date of Procedure: 10/25/20 Description of Surgical Findings:: Preoperative diagnosis: Left knee DJD Postoperative diagnosis: Same Procedure: Left total knee arthroplasty CT guided Robotic Assisted Implant: Sivan triathlon press fit femoral component size 5, press-fit tibial baseplate size 5, press fit asymmetric patella size 35, polyethylene X3 size 9 CS Anesthesia: Spinal with adductor canal block Tourniquet time: 56 minutes at 300 mmHg Complications: None Condition: Stable to PACU Estimated blood loss: 150 cc Indication for procedure: This is a 70-year-old male with long standing degenerative joint disease of the knee who has failed conservative treatment and wished to proceed with elective total knee arthroplasty. Risk benefits and alternatives were reviewed including; risk of bleeding, infection, nerve artery and tissue damage, continued pain, postoperative stiffness, venous thromboembolism, need for postoperative rehabilitation, mechanical feel to the knee, and expected postoperative course. The operative CT and templating was performed with component sizing Procedure: The patient was met in the preoperative holding area. The operative extremity was identified by both patient and physician and was marked. Patient was met by anesthesia. An adductor canal block was placed by anesthesia postoperatively the patient was brought back to the operating room on a wheeled cart and transferred to the operating table in the supine position. Anesthesia was started. A well-padded tourniquet was placed on the operative extremity. The patient was prepped and draped in the usual sterile fashion. A timeout was called to ensure the proper patient procedure and extremity were being contemplated. An Esmarch was used to exsanguinate the extremity. The tourniquet was inflated. A 10 blade scalpel was used to make a midline incision down through the skin and subcutaneous tissue. Skin retractors placed. Bovie was used to perform meticulous hemostasis. full-thickness flaps were elevated medial and lateral along the joint capsule. A deep blade scalpel was used to perform a medial parapatellar arthrotomy. The knee was brought to full extension. A Bovie was used to release the soft tissues off the most proximal aspect of the medial tibial plateau, a three-quarter inch curved osteotome was also used for this process. The infrapatellar fat pad was excised. The superior fat pad was excised partially anteriorolateraly and portion the anterioromedial pad was elevated from the femur. At this point our intra- articular femoral array was placed of a 45 degree angle proximal and posterior to the medial epicondyle. Our tibial array was placed greater than 1 hands breath below the incision at a 20 degree angle stab incisions were used for this case were attached and checked with the robotic software. Tourniquet was let down. At this point registration [place] were taken throughout the knee as well as checkpoints placed in the femur and tibia once the knee was registered then tensioned the medial and lateral ligaments in extension and 90 degrees of flexion. We then used these numbers to adjust our components within parameters to balance the knee in both flexion and extension once this was done on our monitor we then proceeded with using the robotic arm to make our tibial plateau cut and anterior posterior and chamfer cuts and distal on the femur we then trialed and achieved the desired plan with a well-balanced knee. Lug holes were drilled in the femur the tibia preparation was completed with a fin punch and the patella was prepared by first using a caliper to ensure sufficient bone stock and a patellar reamer to remove the desired amount of bone locals were drilled for an asymmetric poly-. We then brought the knee through range of motion with excellent patellar tracking. We thoroughly irrigated the knee with a trial components were removed a posterior capsular injection with her standard cocktail was performed the aqua Mantis was also used to aid in hemostasis. Betadine rinse was allowed to sit and washed out components were press-fit into place. Aricept rinse was then used followed by several more rate liters of irrigation after it was allowed to sit. Joint capsule was closed with #1 Ethibond [id number]'s followed by Vicryl in the subcutaneous tissues staple in the skin arrays and checkpoints were removed prior to closure all counts were correct stab incisions were closed with a stable standard dressing in the form of Mepilex for the main incision Xeroform 4 x 4 and Tegaderm over pin site holes. Thigh-high FABRICIO hose applied over top of dressing. Patient tolerated the procedure well and was directed to PACU in stable condition no intraoperative complications
--- NOTE | 2020-10-25 12:15 | RAD_ITS ---
STUDY: X-RAY - LEFT KNEE REASON FOR EXAM: Male, 70 years old. post op left knee TECHNIQUE: 2 view(s) of the knee. COMPARISON: 09/07/2020 FINDINGS: Normal visualized distal femur. Normal visualized proximal tibia and fibula. Normal proximal tibiofibular articulation. Status post recent total knee arthroplasty with skin amy and subcutaneous emphysema.. The soft tissue structures are unremarkable. RAD/Knee 1 or 2 Views IMPRESSION: Status post recent total knee arthroplasty. Electronically Signed: Brendon Tejada MD at 12:28 EST Tel , Service support ,
[2020-10-25] MEDS: Cefazolin 1 GM/50 ML BAG IV (14:42)
== END 2020-10-25 15:54 | disposition home or self-care (01) ==
LOC: SDC 07:11 → AC 07:11 → MS3 09:35
PROVIDERS: PCP Internal Medicine; Referring Provider Orthopaedic Surgery; Visit Provider Orthopaedic Surgery
PROC: 0SRD0JZ Replacement of Left Knee Joint with Synthetic Substitute, Open Approach (ICD-10-PCS; CPT 27447; principal; 2020-10-25 09:15)
DX: M17.12 Unilateral primary osteoarthritis, left knee (principal); G89.29 Other chronic pain; I25.10 Atherosclerotic heart disease of native coronary artery without angina pectoris; I42.0 Dilated cardiomyopathy; I10 Essential (primary) hypertension; E78.00 Pure hypercholesterolemia, unspecified; N40.0 Benign prostatic hyperplasia without lower urinary tract symptoms; G25.81 Restless legs syndrome; G47.33 Obstructive sleep apnea (adult) (pediatric); Z79.01 Long term (current) use of anticoagulants; Z79.82 Long term (current) use of aspirin; Z79.899 Other long term (current) drug therapy
CPT/HCPCS: 01402; 27447; 64447; 76942; 36415; 73560; 80048; 82962; 83735; 85025; 85610; 85730; 86850; 86900; 86901; 87081; 87426; 93005; 97162; C1776; C9803; J7120; J0702; J2405; J3490

== ENCOUNTER 2020-12-06 11:45 | Day surgery (SDC) | payer MEDICARE, OTHER, SELFPAY ==
[2020-11-07 15:32] VITALS: BMI 32.0
[2020-12-06] VITALS (10 sets, daily range): BP systolic 124–173; BP diastolic 75–113; PULSE 76–90; RESP 16–18; TEMP 36.3–36.6; O2SAT 93–98; BMI 30.2
[2020-12-06] MEDS: Lactated Ringers 1,000 ML 100 ML IV (12:32)
[2020-12-06] MEDS: Cefazolin 2 GM in 0.9% Normal Saline 100 ML IV (13:08)
[2020-12-06] MEDS: Bupiv/Epi 0.25% 30 ML Vial (13:15)
[2020-12-06] MEDS: MethylPREDNISolone Acetate 40 MG/ML Vial IM (13:15)
--- NOTE | 2020-12-06 13:20 | HP.PCM_ITS ---
History and Physical Date of Admission: 12/06/20 Intake Intake Visit Reasons: Left knee Allergies shellfish derived Allergy (Verified 10/25/20 08:01) Swelling Ovdssrt-Sao-Xok Reductase Inhibitor Adverse Reaction (Severe, Verified 10/25/20 08:01) Myalgias [facility] Medical History Atherosclerosis of [place] coronary artery of [place] heart without angina pectoris (Chronic) Pure hypercholesterolemia (Chronic) Essential (primary) hypertension (Chronic) Cardiomyopathy, dilated (Chronic) Long-term use of high-risk medication (Chronic) BPH (benign prostatic hyperplasia) (Chronic) Diverticulitis (Chronic) RENZO (obstructive sleep apnea) (Chronic) Surgical History (Updated 10/25/20 @ 07:[address] Vadim Booth DO) Aortocoronary bypass status (Chronic ~10/06/01) History of arthroscopic knee surgery (Resolved) History of rotator cuff surgery (Resolved) History of shoulder surgery (Resolved ~02/2019) History of total right knee replacement (Resolved ~11/2019) Family History Father CAD (coronary artery disease) Myocardial infarction Diabetes Mother Hypertension CHF (congestive heart failure) COPD (chronic obstructive pulmonary disease) Brother Myocardial infarction, Onset Age: 58 Diabetes Social History (Updated 12/05/20 @ 09:[address] Vadim Booth DO) Smoking Status: Never smoker alcohol intake: current alcohol intake frequency: holidays/special occasions only details: occasional beer,wine substance use type: does not use caffeine: Yes Type: coffee Number of servings: 1, tea Number of servings: 1 HPI Left knee: Details: Parts of this documentation were recorded by a scribe, this documentation accurately reflects the service provided and the decisions made by me, Dr. Vadim Booth DO 12/05/20 [id number]. DENNIS TEMPLE is a 70 year old M here today for s/p Left total knee arthroplasty CT guided Robotic Assisted dos 10/25/20. Patient notes that he has little pain but he has stiffness. He has been doing range of motion 3 times a day and doing formal physical therapy. He notes that he has about 85 degrees flexion after physical therapy. Patient is ambulating with an antalgic gait. He had a knot in his quad which is improving. Patient has minimal swelling. His incision is fully healed. He takes tramadol for pain. ROS Musc Reports joint pain, Reports limited joint movement, Reports stiffness Skin/Breast Reports system reviewed and no additional complaints, except as docu Neuro Yes system reviewed and no additional complaints, except as docu Ortho Exam General General: Yes no acute distress Neurologic: Yes alert Psychologic: Yes reasonable and appropriate Right Knee Patella Translation: 1 Left Knee Skin/Wound: Yes healed, No ecchymosis, No erythema Knee ROM: Yes ROM-Extension -20 to 0 (-4), Yes ROM-Flexion 0-140 (72) Stability: NML: Posterior Drawer, NML: Valgus 0, NML: Valgus 30, NML: Varus 0, NML: Varus 30 Patella Translation: 1 Supplemental Info 12/05/2020 x-ray left knee status post total knee arthroplasty well fixed press- fit good position Assessment & Plan Problems 1. Orthopedic aftercare Z47.89 2. Stiffness of left knee M25.662 3. 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 Left knee is very stiff I do not feel this is a lack of effort I feel he is just 1 of those people who develops excessive scar tissue. Fortunately he is able to achieve near full extension and flexion is what is limiting we did discuss doing a manipulation under anesthesia with intra-articular steroid injection tomorrow for which she agrees we will give him an additional refill of his tramadol as oxycodone causes him severe constipation even with comanagement of medications. Spoke with the patient about the risks of stiffness. Recommended a manipulation under anesthesia. Patient agreed to an VIC with injection. Discussed risks and benefits, and patient signed consent. Escribed the patient tramadol. He should not take an ibuprofen or aleve today. He should take tylenol and tramadol for pain. He should do formal physical therapy the following day. Follow up in 1 month or sooner if pain, swelling, numbness or associated symptoms, or concerns develop. All questions answered. Patient in agreement of plan. 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 There are no clinical changes since date of exam
--- NOTE | 2020-12-06 13:21 | DCINST_ITS ---
Discharge Diet: No Restrictions Weight Bearing Status: Weight bearing as tolerated Keep extremity elevated above heart level: Operative Extremity Call your doctor if you observe: Shortness of breath, Chest pain Additional Instructions: Encourage full knee flexion and extension regularly. Start physical therapy immediately. May shower and return to activities as normal. Keep pain controlled with medications as discussed with Dr. Booth in order to keep full range of motion. Ice and elevate next 72 hours. Follow-up with Dr. Booth and call with any questions or concerns. Allergies/Adverse Reactions: Allergies shellfish derived Allergy (Verified 12/05/20 09:51) Swelling Tnqtbmb-Swa-Bbc Reductase Inhibitor Adverse Reaction (Severe, Verified 12/05/20 09:51) Myalgias Medications to take at Discharge aspirin 81 mg tablet,delayed release 81 mg PO QDAY tab 12/30/17 metoprolol tartrate 25 mg tablet 25 mg PO BID tab 02/10/18 ezetimibe 10 mg tablet 10 mg PO DAILY #90 tab 06/22/19 Tamsulosin HCl 0.4 mg PO DAILY 01/15/20 Acetaminophen [Tylenol Extra Strength] 1,000 mg PO Q6H PRN #100 tab 10/25/20 docusate sodium 100 mg capsule 100 mg PO BID #60 cap 11/07/20 Ascorbic Acid [Vitamin C] 500 mg PO DAILY@0800 12/05/20 Magnesium 250 mg PO DAILY 12/05/20 Potassium 99 mg PO DAILY 12/05/20 Zinc 100 mg PO DAILY 12/05/20 docusate sodium 100 mg capsule 100 mg PO BID #30 cap 12/05/20 tramadol 50 mg tablet 50 - 100 mg PO Q8H PRN #60 tab 12/05/20 Primary Care Physician: Zoë Reyes DO [Primary Care Provider] - Test Results: Test results from this visit will be discussed in further detail at your follow- up appointment, if applicable. Please Follow Up With: Vadim Booth DO - 2weeks
--- NOTE | 2020-12-06 13:22 | OP.PCM_ITS ---
Report of Operation Date of Procedure: 12/06/20 Description of Surgical Findings:: Preoperative diagnosis: Arthrofibrosis [left] knee Postoperative diagnosis: Same Procedure: Manipulation under anesthesia [with intra-articular steroid injection] Anesthesia: General EBL: None Complications: None Condition: Able to PACU Indication for procedure: This is a 70-year-old male who underwent total knee arthroplasty approximately 6 weeks ago who is failed to gain her range of motion wish to undergo an elective manipulation under anesthesia to increase range of motion. risk benefits and alternatives were reviewed including risk of bleeding infection nerve, artery, bone, tissue damage, blood clot need for further mcmahan rgery and continued pain. Procedure: Patient was met in the preoperative holding area once again the operative extremity was identified by both patient and physician and was marked. Patient was brought back to the operating room anesthesia was started. A timeout was called into the proper patient procedure and extremity were being contemplated. The operative range of motion was 4 extension and achieving 70 degrees flexion. After patient was adequately anesthetized extension manipulation was performed followed by patellar mobilization followed by gradual flexion scar tissue was palpated being released with no concerning signs for tendon rupture or fracture. Postoperative range of motion was much improved with [near full ]extension and 100 degrees of flexion. Following the manipulation using sterile technique from the superior lateral position an intra-articular injection with 40 mg of depomedrol and 8 cc 0.25%marcaine with epi was injected. bandaid applied
== END 2020-12-06 16:03 | disposition home or self-care (01) ==
LOC: SDC 11:46 → AC 11:46
PROVIDERS: PCP Internal Medicine; Referring Provider Orthopaedic Surgery; Visit Provider Orthopaedic Surgery
PROC: (CPT 27570; principal; 2020-12-06 13:25)
DX: M24.662 Ankylosis, left knee (principal); I25.10 Atherosclerotic heart disease of native coronary artery without angina pectoris; I42.0 Dilated cardiomyopathy; I10 Essential (primary) hypertension; E78.00 Pure hypercholesterolemia, unspecified; N40.0 Benign prostatic hyperplasia without lower urinary tract symptoms; Z96.652 Presence of left artificial knee joint; Z79.82 Long term (current) use of aspirin; Z79.899 Other long term (current) drug therapy; Z20.822 Contact with and (suspected) exposure to COVID-19
CPT/HCPCS: 20610; 27570; 87426; C9803; J7120; J2405

== ENCOUNTER 2021-02-15 09:00 | Outpatient (RCR) | payer MEDICARE, OTHER, SELFPAY ==
[2020-09-07 08:17] VITALS: BMI 32.0
[2020-10-25 08:21] VITALS: BMI 30.2
--- NOTE | 2020-10-27 12:17 | HP.PTEVAL_ITS ---
Patient's Visit Information DENNIS TEMPLE is a 70 year old M referred to Physical Therapy by Dr. Vadim Booth DO with a diagnosis of L TKA 10/25/20. Date of Evaluation: 10/27/20 Physical Therapist: Ike Lao PT, ATC - Visit Plan Frequency: 2-3x /Week Duration: 4-6 Weeks Plan: L knee PROM/mobs, stretching and strengthening, balance and proprio, cores strengthening, nustep, and HEP - Subjective DOS: 10/25/20. Pt reports his L knee has been sore for a chronic period of time prior to having L TKA. Pt reports he was feeling good while leaving the hospital, but has been really sore ever since. Pt reports he is in a lot of pain today. Pt reports he is trying to limit his pain meds secondary to constipation he experienced from R TKA one year ago. Pt notes he feels no tingling in his LE, but notes his L knee feels numb when he bends it. Pt notes sleep difficulty without pain meds. 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 Pt reports he was I with all activity prior to this episode. Pt has stairs at home, which are difficulty to negotiate at this time. 1/10 pain at rest, 7/10 pain with stretching. - Pain L Knee Pain Intensity (Out of 10): 0 Pain Intensity Range: 8 - Objective Neuro: B LE sensation is WNL to light touch throughout. Girth at jnt line: L knee 44 cm, R knee 39 cm. ROM: R knee 0-3-105, L knee 0-15-55. MMT: L knee flex= 0, ext 4.2, R knee flex= 26.6, ext= 24.9. Tu.6 sec. WOMAC: 66/96 - Goals Goal 1:: Decrease L knee pain x 50 % toa id with sleep Goal Time Frame: 4-6 Weeks Goal 2:: Increase L knee ROM x 50 degrees to aid with restoring a normalized gait pattern Goal Time Frame: 4-6 Weeks Goal 3:: Increase L knee strength x 1 grade to aid with stair negotiation Goal Time Frame: 4-6 Weeks Goal 4:: I with HEP Goal Time Frame: 4-6 Weeks - Rehabilitation Potential Physical Therapy Diagnosis: L knee pain, weakness, and limited ROM secondary to L TKA Rehabilitation Potential: Good - Anticipated Interventions Patient/Client Instruction: Educate patient on: Condition, Plan of Care For the Purpose of:: To improve self management Therapeutic Exercise to Include: Strength training, Endurance training, Balance training, Flexibilty training, Gait and locomotor training, Passive ROM, Active ROM, Dynamic Lumbar Stabilization For the Purpose of:: To decrease pain, To increase ROM, To improve muscle performance and motor function Cryotherapy (ice pack, ice massage): Yes For the Purpose of:: To decrease pain Thank you for the opportunity to evaluate your patient. For Medicare and Medicare HMO plans, please review the plan of care and approve it. It will need to be FAXED BACK to us at [phone] for Medicare purposes. For Medicare only, by signing this I certify the plan of care. Please let me know if there are questions or concerns regarding this plan of care. Physician Signature: Date:
--- NOTE | 2020-12-02 07:33 | HP.PTREVAL ---
Dr. Vadim Booth, DO, It has been my pleasure to treat DENNIS TEMPLE over the last 17 visits for L TKA 10/25/20. Please see the progress note below for an update on the physical therapy plan of care! Subjective: My knee is so stiff, i cant bend it Objective/Function: L knee pain ranges from 1-5/10. L knee MMT: Extension= 23.7(was 4.2), flexion= 16.8 (was 0) #F. L knee ROM: 0-10-78 degrees. Pt has worked hard for ROM but L knee still stiff Plan Plan: Cont after visit Saturday Goals Goal 1:: Decrease L knee pain x 50 % toa id with sleep Goal Time Frame: 4-6 Weeks Goal 2:: Increase L knee ROM x 50 degrees to aid with restoring a normalized gait pattern Goal Time Frame: 4-6 Weeks Goal 3:: Increase L knee strength x 1 grade to aid with stair negotiation Goal Time Frame: 4-6 Weeks Goal 4:: I with HEP Goal Time Frame: 4-6 Weeks Anticipated Interventions Patient/Client Instruction: Educate patient on: Condition, Plan of Care For the Purpose of:: To improve self management Therapeutic Exercise to Include: Strength training, Endurance training, Balance training, Flexibilty training, Gait and locomotor training, Passive ROM, Active ROM, Dynamic Lumbar Stabilization For the Purpose of:: To decrease pain, To increase ROM, To improve muscle performance and motor function Cryotherapy (ice pack, ice massage): Yes For the Purpose of:: To decrease pain Please do not hesitate to contact me at [phone] by phone or if you have questions or concerns regarding this new plan of care! Sincerely, Ike Lao, PT, ATC
--- NOTE | 2020-12-30 08:14 | HP.PTREVAL ---
Dr. Vadim Booth, DO, It has been my pleasure to treat DENNIS TEMPLE over the last 28 visits for L TKA 10/25/20. Please see the progress note below for an update on the physical therapy plan of care! Subjective: No pain today Objective/Function: L knee pain 0/10. L knee ROM: 0-96 degrees. L knee MMT: flex= 20.3, ext= 26.8. Pt has progressed well since VIC Plan Plan: Cont/DC pending DrGabriela visit next Saturday Goals Goal 1:: Decrease L knee pain x 50 % toa id with sleep Goal Time Frame: 4-6 Weeks Goal Progress: Progressing Goal 2:: Increase L knee ROM x 50 degrees to aid with restoring a normalized gait pattern Goal Time Frame: 4-6 Weeks Goal Progress: Progressing Goal 3:: Increase L knee strength x 1 grade to aid with stair negotiation Goal Time Frame: 4-6 Weeks Goal Progress: Goal Met Goal 4:: I with HEP Goal Time Frame: 4-6 Weeks Goal Progress: Progressing Anticipated Interventions Patient/Client Instruction: Educate patient on: Condition, Plan of Care For the Purpose of:: To improve self management Therapeutic Exercise to Include: Strength training, Endurance training, Balance training, Flexibilty training, Gait and locomotor training, Passive ROM, Active ROM, Dynamic Lumbar Stabilization For the Purpose of:: To decrease pain, To increase ROM, To improve muscle performance and motor function Cryotherapy (ice pack, ice massage): Yes For the Purpose of:: To decrease pain Please do not hesitate to contact me at [phone] by phone or if you have questions or concerns regarding this new plan of care! Sincerely, Ike Lao, PT, ATC
--- NOTE | 2021-01-10 10:55 | HP.PTREVAL ---
Dr. Vadim Booth, DO, It has been my pleasure to treat DENNIS TEMPLE over the last 30 visits for L TKA 10/25/20. Please see the progress note below for an update on the physical therapy plan of care! Subjective: That splint makes me sore. Otherwise, no pain. Objective/Function: Pt hernán all Rx well. L knee pain is 0/10. L knee ROM 0-102 degrees. Pt is showing excellent progress post manupulation Plan Plan: Cont to progress as hernán Goals Goal 1:: Decrease L knee pain x 50 % toa id with sleep Goal Time Frame: 4-6 Weeks Goal Progress: Progressing Goal 2:: Increase L knee ROM x 50 degrees to aid with restoring a normalized gait pattern Goal Time Frame: 4-6 Weeks Goal Progress: Progressing Goal 3:: Increase L knee strength x 1 grade to aid with stair negotiation Goal Time Frame: 4-6 Weeks Goal Progress: Goal Met Goal 4:: I with HEP Goal Time Frame: 4-6 Weeks Goal Progress: Progressing Anticipated Interventions Patient/Client Instruction: Educate patient on: Condition, Plan of Care For the Purpose of:: To improve self management Therapeutic Exercise to Include: Strength training, Endurance training, Balance training, Flexibilty training, Gait and locomotor training, Passive ROM, Active ROM, Dynamic Lumbar Stabilization For the Purpose of:: To decrease pain, To increase ROM, To improve muscle performance and motor function Cryotherapy (ice pack, ice massage): Yes For the Purpose of:: To decrease pain Please do not hesitate to contact me at [phone] by phone or if you have questions or concerns regarding this new plan of care! Sincerely, Ike Lao, PT, ATC
--- NOTE | 2021-02-03 09:34 | HP.PTREVAL ---
Dr. Vadim Booth, DO, It has been my pleasure to treat DENNIS TEMPLE over the last 41 visits for L TKA 10/25/20. Please see the progress note below for an update on the physical therapy plan of care! Subjective: Pt reports he is still having a very difficult time sith stairs and car transfers Objective/Function: L knee pain 10/30. L knee MMT: flex= 19.9, ext= 31.4. L knee ROM: 0-95. Stairs: Pt is able to negoe one flight with the use of one cane. Very slow. Tu.38 Plan Plan: Cont as hernán Goals Goal 1:: Decrease L knee pain x 50 % toa id with sleep Goal Time Frame: 4-6 Weeks Goal Progress: Goal Met Goal 2:: Increase L knee ROM x 50 degrees to aid with restoring a normalized gait pattern Goal Time Frame: 4-6 Weeks Goal Progress: Progressing Goal 3:: Increase L knee strength x 1 grade to aid with stair negotiation Goal Time Frame: 4-6 Weeks Goal Progress: Goal Met Goal 4:: I with HEP Goal Time Frame: 4-6 Weeks Goal Progress: Progressing Anticipated Interventions Patient/Client Instruction: Educate patient on: Condition, Plan of Care For the Purpose of:: To improve self management Therapeutic Exercise to Include: Strength training, Endurance training, Balance training, Flexibilty training, Gait and locomotor training, Passive ROM, Active ROM, Dynamic Lumbar Stabilization For the Purpose of:: To decrease pain, To increase ROM, To improve muscle performance and motor function Cryotherapy (ice pack, ice massage): Yes For the Purpose of:: To decrease pain Please do not hesitate to contact me at [phone] by phone or if you have questions or concerns regarding this new plan of care! Sincerely, Ike Lao, PT, ATC
--- NOTE | 2021-02-15 09:47 | HP.PTDCSUM ---
It has been my pleasure to treat DENNIS TEMPLE referred by Dr. Vadim Booth DO, with the diagnosis of L TKA 10/25/20 for a total of 45 visit(s). Discharge Date: Please see the following information for a summary of their discharge status. Subjective: I am ready to be discharged L Knee Pain Intensity (Out of 10): 0 % Improvement: 75 Objective/Function: L knee pain 0/10. L knee ROM 0-98. L knee strength: ext= 39, flex= 23. I with HEP. Rx goals achieved Goal 1:: Decrease L knee pain x 50 % toa id with sleep Goal Progress: Goal Met Goal 2:: Increase L knee ROM x 50 degrees to aid with restoring a normalized gait pattern Goal Progress: Goal Met Goal 3:: Increase L knee strength x 1 grade to aid with stair negotiation Goal Progress: Goal Met Goal 4:: I with HEP Goal Progress: Goal Met Plan: Discharge If there are questions or concerns regarding this patient's physical therapy, please feel free to call me at [phone]. Thank you for the referral of this patient. Sincerely, Ike Lao, PT, ATC
== END 2021-02-15 19:00 | disposition home or self-care (01) ==
LOC: PT 09:00
PROVIDERS: PCP Internal Medicine; Referring Provider Orthopaedic Surgery; Visit Provider Orthopaedic Surgery
DX: Z47.1 Aftercare following joint replacement surgery (principal); Z96.652 Presence of left artificial knee joint
CPT/HCPCS: 97110; 97140; 97161; 97164

== ENCOUNTER 2021-08-26 12:49 | Outpatient (CLI) | payer MEDICARE, OTHER, SELFPAY ==
[2021-08-26] MEDS: 0.9% Saline Lock 10 ML Syringe IV (13:54)
[2021-08-26 13:56] VITALS: BP 132/72; PULSE 69; RESP 16; TEMP 36.3; O2SAT 97; BMI 29.6
[2021-08-26 14:53] VITALS: BP 114/57; PULSE 63; RESP 16; TEMP 36.6; O2SAT 99
[2021-08-26 15:57] VITALS: BP 124/77; PULSE 66; RESP 16; TEMP 36.3; O2SAT 98
== END 2021-08-26 15:58 | disposition home or self-care (01) ==
LOC: MS3OUT 12:51 → MS3 13:35
PROVIDERS: PCP Internal Medicine; Visit Provider Internal Medicine Pulmonary Disease
DX: U07.1 COVID-19 (principal)
CPT/HCPCS: J7050; M0245; Q0245; A4216

== ENCOUNTER 2021-12-18 08:30 | Outpatient (RCR) | payer MEDICARE, OTHER, SELFPAY ==
--- NOTE | 2021-11-13 08:53 | HP.PTEVAL_ITS ---
Patient's Visit Information DENNIS TEMPLE is a 71 year old M referred to Physical Therapy by Dr. Vadim Booth DO with a diagnosis of Bilateral Knee Arthrofibrosis and Quad Weakness. Date of Evaluation: 11/13/21 Physical Therapist: Brittney Mortensen DPT - Visit Plan Frequency: 2x /Week Duration: 4 Weeks Plan: Functional Mobility (Stairs, Up from Ground), Eccentric Control and ROM- Left ROM 0-85 degrees. HEP Given IE: heel slide supine and seated, prone knee f lexion, Eccentric Bridge, Sit to Stand - Subjective Left Total Knee Replacement: Oct 2020 Right Total Knee: Nov 2019. Patient reports that he is still not able to do stairs without cane or HR. He is able to walk great but can't get up/down off the floor which he occasionally has has to do. Discomfort in the left medial knee that comes and goes Worst: 3/10 Best: 0/10. He has mild burning on the lateral aspect of the thigh. Does have mild swelling throughout his left LE- activity makes it a little worse. Patient reports his knee is stiff. The right he is pretty happy with but still struggles with the left. 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 About a month ago he started having lumbar soreness- belt line- took Tylenol 4 days in a row and it went away. has noticed that when he gets tired he moves the knee around without thinking about it. PMHx/Med: no changes since he was at ortho. - Objective Posture: FH, RS can correct with verbal cues but does not maintain. Gait: antalgic- decreased stance on the left LE with poor heel/toe pattern. Stairs: asc: recip with 2 HR- requires UE A for propulsion, Desc: decreased knee flexion in the left LE with poor eccentric control. Transfer: up from floor- tripod not throughout half kneel, requires UE A. HR/TR: able. SLS: 10 sec with moderate hip drop. Palpation: not tender. ROM: Left: 0-85 degrees Right: 0-105 degrees. Strength: Core: fair minus, Knee: 4+/5 in sitting 90/90, Hip: 4/5 throughout, A nkle: 5/5. Flex: HS: moderate, Gastroc: moderate. Edema: none noted. - Balance/Special Test Scores Lower Extremity Functional Score: 46 - Goals Goal 1:: Patient will be I with HEP and progression Goal Time Frame: 4-6 Weeks Goal 2:: Patient will asc/desc 8 recip with no HR Goal Time Frame: 4-6 Weeks Goal 3:: Patient will get up/down off the ground without assistance x3 Goal Time Frame: 4-6 Weeks Goal 4:: Patient will squat with good technique Goal Time Frame: 4-6 Weeks Goal 5:: Patient will demo 0-110 degrees of ROM Goal Time Frame: 4-6 Weeks - Rehabilitation Potential Physical Therapy Diagnosis: Patient presents with hypomobility- he has decreased ROM, LE and core strength/stabilization and muscular endurance in his left>right LE leading to increased difficulty with ADL's. Rehabilitation Potential: Good - Anticipated Interventions Patient/Client Instruction: Educate patient on: Benefits of Fitness Program Therapeutic Exercise to Include: Strength training, Endurance training, Balance training, Coordination, Agility training, Body mechanics, Postural training, Flexibilty training, Gait and locomotor training, Neuromotor development, Dynamic Lumbar Stabilization, Scapular Strength/Stabilization For the Purpose of:: To improve muscle performance and motor function Cryotherapy (ice pack, ice massage): Yes Thermo therapy (hot pack): Yes Ultrasound (thermal/non thermal): No Thank you for the opportunity to evaluate your patient. For Medicare and Medicare HMO plans, please review the plan of care and approve it. It will need to be FAXED BACK to us at [phone] for Medicare purposes. For Medicare only, by signing this I certify the plan of care. Please let me know if there are questions or concerns regarding this plan of care. Physician Signature: Date:
--- NOTE | 2021-12-18 09:04 | HP.PTDCSUM ---
It has been my pleasure to treat DENNIS TEMPLE referred by Dr. Vadim Booth DO, with the diagnosis of Bilateral Knee Arthrofibrosis and Quad Weakness for a total of 8 visit(s). Discharge Date: Please see the following information for a summary of their discharge status. Subjective: Patient reports his left knee is stiffer than the right. Has not seen a drastic difference in range of motion or functionality of the knee. He can walk distances but not quickly and stairs are hard. L knee Pain Intensity (Out of 10): 0 % Improvement: 0 Objective/Function: Posture: FH, RS can correct with verbal cues but does not maintain. Gait: slightly antalgic- decreased stance on the left LE. Stairs: asc: recip with 1 HR- requires UE A for propulsion, Desc: decreased knee flexion in the left LE with poor eccentric control. Transfer: up from floor- tripod not throughout half kneel, requires UE A. HR/TR: able. SLS: 10 sec with moderate hip drop. Palpation: not tender. ROM: Left: 0-95 degrees Right: 0-105 degrees. Strength: Core: fair minus, Knee: 4+/5 in sitting 90/90, Hip: 4/5 throughout, Ankle: 5/5. Flex: HS: moderate, Gastroc: moderate. Edema: none noted. Goal 1:: Patient will be I with HEP and progression Goal Progress: Goal Met Goal 2:: Patient will asc/desc 8 recip with no HR Goal Progress: Not Progressing Goal 3:: Patient will get up/down off the ground without assistance x3 Goal Progress: Not Progressing Goal 4:: Patient will squat with good technique Goal Progress: Not Progressing Goal 5:: Patient will demo 0-110 degrees of ROM Goal Progress: Progressing Plan: 12/18/2021: Discharge return to MD for further evaluation. No significant changes. IE: Functional Mobility (Stairs, Up from Ground), Eccentric Control and ROM- Left ROM 0-85 degrees If there are questions or concerns regarding this patient's physical therapy, please feel free to call me at [phone]. Thank you for the referral of this patient. Sincerely, Brittney Mortensen, DPT Balance/Gait/Functional tests - Balance/Special Test Scores Lower Extremity Functional Score: 44
== END 2021-12-18 10:18 | disposition home or self-care (01) ==
LOC: PT 08:30
PROVIDERS: PCP Internal Medicine; Referring Provider Orthopaedic Surgery; Visit Provider Orthopaedic Surgery
DX: M24.661 Ankylosis, right knee (principal); M24.662 Ankylosis, left knee; R53.1 Weakness
CPT/HCPCS: 97110; 97161; 97164

== ENCOUNTER → 2022-09-19 | Outpatient (CLI) | payer MEDICARE, OTHER, SELFPAY ==
--- NOTE | 2022-09-19 08:19 | US_ITS ---
STUDY: ABDOMINAL ULTRASOUND - RIGHT UPPER QUADRANT REASON FOR VISIT: Male, 71 years old Fatty liver TECHNIQUE: Ultrasound evaluation of the right upper quadrant was performed with real-time and static mullins-scale imaging. TECHNICAL QUALITY: Adequate. COMPARISON: Comparison is made with prior study dated 12/13/2016. FINDINGS: Liver: The liver measures 15.5 cm. There is normal echogenicity of the liver. The bile ducts are within normal limits. There is hepatic color flow. The direction of portal flow is hepatopetal. There is no demonstrated mass lesion. Gallbladder: Normal distended gallbladder. The gallbladder wall measures 1.5 mm. There is a negative sonographic Henderson''s sign. There is no pericholecystic fluid. There are no gallstones. Common Bile Duct (C.B.D.): The common bile duct measures 5.2 mm. Pancreas: There is nonvisualization of the pancreas due to overlying bowel gas. Right Kidney: Normal size of the right kidney. The right kidney measures 10.2 cm x 6.4 cm x 5.3 cm. Normal renal cortex. The right cortex measures 1.3 cm. There is no demonstrated renal mass or cyst. There is no right hydronephrosis. US/Abdomen Limited IMPRESSION: Normal right upper quadrant ultrasound examination. Electronically Signed: Catracho Andrew MD at 9:41 EST ,
--- NOTE | 2022-09-19 08:20 | US_ITS ---
STUDY: ABDOMINAL ULTRASOUND - ELASTOGRAPHY REASON FOR VISIT: Male, 71 years old. Fatty infiltration of the liver. TECHNIQUE: Liver stiffness measurements were obtained on a First Wave RS 85 ultrasound machine using a CA 1-7 probe following the SRU guidelines. 3 measurements were obtained using a 2-D-SWE method. The IQR/M was 16% suggesting a quality data set. TECHNICAL QUALITY: Adequate. COMPARISON: Comparison is made with prior study done earlier in the day. FINDINGS: Liver: There is no demonstrated mass lesion. Median liver stiffness measured 12.3 kPa. US/Elastography Parenchyma/Organ IMPRESSION: Liver stiffness measures 12.3 kPa compatible with F3-F4 (Moderate to severe liver fibrosis) Metavir score. Electronically Signed: Catracho Andrew MD at 10:05 EST ,
== END | disposition home or self-care (01) ==
LOC: US 08:19
PROVIDERS: PCP Internal Medicine; Visit Provider Internal Medicine
DX: K76.0 Fatty (change of) liver, not elsewhere classified (principal)
CPT/HCPCS: 76705; 76981

== ENCOUNTER → 2022-10-09 | Outpatient (CLI) | payer MEDICARE, OTHER, SELFPAY | END | disposition home or self-care (01) | LOC: LAB 15:08 | PROVIDERS: PCP Internal Medicine; Referring Provider Registered Nurse; Visit Provider Registered Nurse | DX: Z12.5 Encounter for screening for malignant neoplasm of prostate (principal) | CPT/HCPCS: 36415; 84153; G0103 ==

== ENCOUNTER → 2022-12-12 | Outpatient (CLI) | payer MEDICARE, OTHER, SELFPAY ==
[2022-12-12 10:29] LABS: International Normalized Ratio 1.1; Prothrombin Time (Protime)PT. 13.7 SECONDS (11.7-14.9)
[2022-12-12 11:02] LABS: Erythrocyte Sedimentation Rate 7 mm/hr (0-20)
[2022-12-12 11:05] LABS: Absolute Lymphocyte Count 2.01 X10^3/uL (0.83-4.51); Absolute Neutrophil Count 3.9 X10^3/uL (2.0-7.7); Basophil# 0.06 X10^3/uL; Basophil% 0.9 % (0-1); Eosinophil# 0.23 X10^3/uL; Eosinophils% 3.4 % (0-5); Hematocrit 46.8 % (40-54); Hemoglobin 14.9 g/dL (13.0-16.5); Lymphocyte # 2.01 X10^3/ul (0.83-4.51); Lymphocyte % 29.9 % (19-41); Mean Corp Hgb Conc 31.8 g/dL (32-36); Mean Corpuscular Hgb 28.7 pg (27.0-32.0); Mean Corpuscular Volume 90.2 fL (80-94); Mean Platelet Vol. 10.5 fl (6.2-12.0); Monocyte# 0.48 X10^3/uL; Monocyte% 7.1 % (0-10); NRBC Flagged by Analyzer 0 % (0-5); Neutrophil # 3.93 X10^3/uL (2.7-7.7); Neutrophil % 58.6 % (47-70); Platelet Count 217 K/mm3 (150-450); RBC Distribution Width CV 13.5 % (11.6-14.6); RBC Distribution Width SD 44.9 fl (35.1-43.9); Red Blood Count 5.19 M/mm3 (4.6-6.2); White Blood Count 6.7 K/mm3 (4.4-11.0)
[2022-12-12 11:42] LABS: AST(SGOT) 30 U/L (15-37); Alanine Aminotransfer ALT/SGPT 32 U/L (16-61); Alkaline Phosphatase 64 U/L (45-117); Anion Gap 5 (5-15); BUN 15 mg/dL (7-18); BUN/Creat Ratio 15.9 RATIO (10-20); CRP < 2.90 mg/L (0.0-3.0); Calcium,Total 9.4 mg/dL (8.5-10.1); Chloride 104 mmol/L (98-107); Creatinine, Serum 0.94 mg/dL (0.70-1.30); EST Glomerular Filtration Rate 83 mL/min (>60); Est Glom Filt Rate - Afr Amer 101 mL/min (>60); Ferritin 33 ng/mL (26-388); Globulin 3.9 g/dL (2.2-4.2); Glucose 103 mg/dL (74-106); LDH 221 U/L (87-241); Potassium 4.4 mmol/L (3.5-5.1); Protein, Total 7.9 g/dL (6.4-8.2); Sodium Level 140 mmol/L (136-145)
[2022-12-12 12:40] LABS: HIV - WCH Non-Reactive (Nonreactive)
[2022-12-13 13:08] LABS: Anti-Centromere B Ab <0.2 AI (0.0-0.9); Anti-Chromatin <0.2 AI (0.0-0.9); Anti-Jo <0.2 AI (0.0-0.9); Anti-Scleroderma-70 AB <0.2 AI (0.0-0.9); RNP Ab 0.2 AI (0.0-0.9); SJOGREN'S Anti-SS-A test < 0.2 AI (0.0-0.9); SJOGREN'S Anti-SS-B test < 0.2 AI (0.0-0.9); Smith Ab <0.2 AI (0.0-0.9)
[2022-12-13 19:07] LABS: Angiotensin Convert Enzyme 50 U/L (14-82); Ceruloplasmin 22.8 mg/dL (16.0-31.0); Cytoplasmic Ab (C-ANCA) <1:20 titer (Neg:<1:20); Endomysial Antibody IgA Negative (Negative); HEPATITIS B SURFACE AG Negative (Negative); Hep C Antibodies Non Reactive (Non Reactive); Hepatitis A IgM Antibody Negative (Negative); Hepatitis B Core AB IgM Negative (Negative); Immunoglobulin A 206 mg/dL (61-437)
[2022-12-13 22:57] LABS: Anti-Mitochondrial AB <20.0 Units (0.0-20.0); Anti-dsDNA Ab <1 IU/mL (0-9)
[2022-12-13 23:04] LABS: AFP, Tumor Marker 2.9 ng/mL (0.0-8.4); Anti-Smooth Muscle ABS 6 Units (0-19); Copper, Serum or Plasma 116 ug/dL (69-132); Haptoglobin 126 mg/dL (34-355); Perinuclear Ab (P-ANCA) <1:20 titer (Neg:<1:20); t-Transglutaminase IgA <2 U/mL (0-3)
== END | disposition home or self-care (01) ==
LOC: LAB 09:26
PROVIDERS: PCP Internal Medicine; Referring Provider Nurse Practitioner Adult Health; Visit Provider Nurse Practitioner Adult Health
DX: K74.00 Hepatic fibrosis, unspecified (principal); I42.0 Dilated cardiomyopathy; I25.10 Atherosclerotic heart disease of native coronary artery without angina pectoris; I10 Essential (primary) hypertension; K76.0 Fatty (change of) liver, not elsewhere classified; R10.11 Right upper quadrant pain; Z79.899 Other long term (current) drug therapy
CPT/HCPCS: 36415; 80053; 80074; 82105; 82140; 82164; 82390; 82525; 82728; 82784; 83010; 83036; 83516; 83615; 85025; 85610; 85652; 86140; 86225; 86235; 86255; 86256; 86703

== ENCOUNTER → 2023-09-16 | Outpatient (CLI) | payer MEDICARE, OTHER, SELFPAY ==
--- NOTE | 2023-09-16 07:30 | MRI_ITS ---
STUDY: MRI CERVICAL SPINE WITHOUT CONTRAST REASON FOR EXAM: Male, 72 years old. Cervical radiculopathy TECHNIQUE: Standardized fat and water weighted pulse sequences were obtained in the sagittal and axial planes. COMPARISON: Cervical spine radiographs 07/24/2023. FINDINGS: Normal foramen magnum and brainstem-cervical cord junction. Normal craniovertebral junction. Normal anterior atlantoaxial articulation. Normal odontoid process. Normal cervical lordosis. Normal vertebral bodies and posterior osseous elements. C2-3: Normal endplates. Normal disc height. Normal central canal. Mild stenosis of the left intervertebral neural foramen due to osteophyte arising from the left uncovertebral joint. Normal right intervertebral neural foramen. C3-4: Normal endplates. Normal disc height and morphology. Normal central canal and intervertebral neural foramina. Mild bilateral degenerative facet arthropathy. C4-5: Normal endplates. Normal disc height and morphology. Normal central canal. Moderate right degenerative facet arthropathy. No significant facet arthropathy. Normal central canal. Mild stenosis of the right intervertebral neural foramen. Normal left intervertebral neural foramen. C5-6: Normal endplates. Normal disc height. Minimal ventral extradural defect due to posterior bulging annulus. Normal central canal and intervertebral neural foramina. C6-7: Minimal Modic type I degenerative vertebral marrow edema underneath the vertebral endplates. Mild disc space height narrowing. Mild ventral extradural defect due to posterior bulging annulus. Normal central canal and intervertebral neural foramina. C7-T1: Normal C7 in the white. Slight anterior wedging of T12 superior endplate is presumably from remote injury. Normal disc height, signal and morphology. Normal central canal and intervertebral neural foramina. T1-T2, T2-T3 and T3-4: (Sagittal only). Normal endplates. Normal disc height and morphology. Normal central canal and intervertebral neural foramina. Normal cervical cord. Normal upper thoracic spinal cord. Normal included portions of the brainstem and cerebellum. Normal visualized soft tissue structures. MRI/Spine Cervical (Routine) IMPRESSION: 1. No MRI evidence of cervical extruded disc fragment or surgical disc protrusion. 2. Mild stenosis of the left C2-C3 intervertebral neural foramen due to osteophyte arising from the left uncovertebral joint. 3. Mild stenosis of the right C4-C5 intervertebral neural foramen due to osteophyte arising from the right uncovertebral joint. 4. Small C5-C6 posterior bulging annulus. 5. Normal cervical spinal cord. Electronically Signed: Siddhartha Nelson MD at 15:46 EST ,
== END | disposition home or self-care (01) ==
LOC: MRI 07:29
PROVIDERS: PCP Internal Medicine; Referring Provider Internal Medicine; Visit Provider Internal Medicine
DX: M54.12 Radiculopathy, cervical region (principal)
CPT/HCPCS: 72141

== ENCOUNTER 2023-09-20 09:00 | Outpatient (RCR) | payer MEDICARE, OTHER, SELFPAY ==
--- NOTE | 2023-07-26 12:54 | HP.PTEVAL_ITS ---
Patient's Visit Information Visit Information Visit Information: DENNIS TEMPLE is a 72 year old M referred to Physical Therapy by Dr. Zoë Reyes DO with a diagnosis of CERVICAL RADICULOPATHY. Date of Evaluation: 07/26/23 Physical Therapist: Flavia Liu PT, Cert MDT Visit Plan Frequency: 2-3x /Week Duration: 4-6 Weeks Plan: FURTHER ASSESSMENT OF SX'S NEXT VISIT. CHECK FOR IMAGAING RESULTS. CONSIDER CERVICAL DISTRACTION/TRACTION TESTING. POSTURE CORRECTION/STRENGTHENING, INSTRUCTION IN APPROPRIATE BODY MECHANICS AND ACTIVITY MODIFICATIONS. MAL UE ROM, STRETCHING AND STRENGTHENING. HEP INSTRUCTION. 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 Present symptoms: L UPPER ARM MILD PAIN FROM SHLD TO ELBOW. A LITTLE BIT OF TINGLING IN THE L LITTLE FINGER RIGHT NOW. LEFT NECK PAIN RECENT SATURDAY BUT NOT RIGHT NOW. PAIN EXTENDS ALL THE WAY TO MY HAND AND INTO BICEP AREA AND FOREARM AT TIMES. ARM SOMETIMES FEELS LIKE A HEAVY WEIGHT. Present since: Jun. Pain Scale: Worst - 6-8/10 Least - 0/10 Currently: 10/30 Commenced as a result of: NO APPARENT REASON. JUST LYING DOWN ON BACK TRYING TO GO TO SLEEP WHEN THE PAIN HIT WHILE CAMPING (SECOND NIGHT). STATES THE ONLY THING HE CAN THINK OF IS THAT HE WAS WALKING THE DOG A LOT AND IT IS BIG AND PULLS A LOT. Symptoms at onset: TERRIBLE BURING IN FOREARM GOING UP ARM TO SHLD. OTHER: GETTING BETTER. I HAVE SEEN SIGNIFICANT IMPROVEMENT. Worse: LYING ON BACK, RIDING IN THE TRUCK OR MOWER, VIBRATION, LIFTING, SITTING STILL, RANDOM Better: CHANGE OF POSITION, MOVING ARM AND RESTING ARM ON SOMETHING. Disturbed sleep: I CAN NOT SLEEP ON MY BACK'. Previous history/Previous treatment: L ROTATOR CUFF REPAIR 6-8 YEARS AGO AFTER FALLING AND CATCHING SELF WITH L HAND ON STEPS - PATIENT REPORTS HE HAD NEAR FULL RECOVERY. OVER THE PAST YEAR I HAVE NOTICED THAT WHEN I USE THE ZERO TURN IT IS MORE OF AN EFFORT TO USE THE LEFT HAND AND THERE IS SOME TINGLING IN THE LEFT HAND. PATIENT DENIES ANY HISTORY OF NECK PROBLEMS. DENIES HISTORY OF CHIROPRACTIC. This episode: IBUPROFEN, ICY HOT, PREDNISONE STARTING YESTERDAY WITH IMMEDIATE RELIEF BUT STILL COULDN'T LAY DOWN LAST NIGHT. Dizziness: NO Tinnitis: NO Nausea: NO Shortness of Breath: NO Difficulty Swollowing: NO Gait: I WALK VERY UNSTEADY BECAUSE MY KNEE OPERATIONS WERE UNSUCCESSFUL. PATIENT REPORTS HE HAS TO BE CAREFUL BUT HE STILL DOES EVERYTHING THAT HE DID BEFORE. Accidents: ANOTHER FALL THAT WAS ON ICE AT WORK AND HURT R SHLD - R ROTATOR CUFF REPAIR - IT TURNED OUT PRETTY GOOD - PATIENT REPORTS 95% IMPROVEMENT BOTH SHLD'S. Unexplained weight loss: NO Imaging: RECENT NECK AND SHLD X-RAYS PER PATIENT REPORT: RESULTS NOT AVAILABLE AND NOT KNOWN TO PATIENT PMH/Recent major surgery: MAL TKR'S BY DR. CONTRERAS. DIVERTICULOSIS. HIGH CHOLESTEROL. SINGLE BYPASS HEART SX. Objective Objective: Sitting Posture/Standing Posture: FORWARD HEAD. ROUNDED SHLD'S. NO TORTICOLLIS. Active Correction of posture: INCREASES L UE PAIN. Other Observations: INDEP GAIT AND TRANSFERS. NO AD'S BUT SHORT MAL STRIDE LENGTH AND UNSTEADY GAIT. Sensory deficit: MAL UE LIGHT TOUCH SENSATION GROSSLY INTACT AND SYMMETRICAL ROM deficit: MAL UE'S WFL. PATIENT DENIES PAIN WITH TESTING OF R UE BUT C/O PAIN WITH TESTING OF L UE OVER HEAD, BEHIND BACK AND BEHIND HEAD. 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 L UE: SHLD 4-/5, ELBOW 4/5, DUMPER BAILER OPERATOR 30 LBS. INCREASED C/O L UPPER ARM PAIN AFTER L SHLD MMT'ING. Dural Signs: POSITIVE L UE. Cervical Mvmt Loss: Flex: NIL Pro: NIL Ext: MOD TO ROSA Ret: ROSA RSB: MOD TO ROSA LSB: ROSA R Rot: MOD L Rot: MOD PATIENT WITH INCREASED SX'S WITH CERVICAL ROM TESTING ALL PLANES - INCREASES L UE PAIN AND TINGLING IN ULNAR BOARDER OF L HAND AND FINGERS. ALSO TINGLING L ELBOW AREA. L UE SX'S ARE EASILY PROVOKED WITH GENTLE CERVICAL ROM TESTING. Postural strength: POOR TREATMENT: NEURO RE-ED: INSTRUCTED PATIENT IN USE OF LUMBAR SUPPORT IN SITTING, FREQUENT CHANGE OF POSITION AND AVOIDANCE OF PERIPHERALIZATION OF SX'S BY AVOIDING KNOWN AGGREVATING ACTIVITIES STATED ABOVE WHEN POSSIBLE. PATIENT COMMUNICATED A GOOD UNDERSTANDING OF ALL INSTRUCTIONS AFTER GIVEN AND TOLERATED USE OF LUMBAR SUPPORT IN SITTING IN CLINIC WELL. Balance/Special Test Scores Oswestry Neck Score: 23 Goals Goal 1:: DECREASE C/O NECK AND L UE SX'S BY 50% Goal Time Frame: 4-6 Weeks Goal 2:: IMPROVE PERSONAL CARE, LIFTING, READING, SLEEP, WORK, DRIVING AND RECREATIONAL FUNCTION Goal Time Frame: 4-6 Weeks Goal 3:: INSTRUCT IN PROPHYLAXIS Goal Time Frame: 4-6 Weeks Rehabilitation Potential Rehabilitation Potential: Fair Anticipated Interventions Patient/Client Instruction: Educate patient on: Condition, Plan of Care and Risk Factors For the Purpose of:: To improve self management Therapeutic Exercise to Include: Strength training, Body mechanics, Postural training, Flexibilty training, Neuromotor development and Scapular Strength/Stabilization For the Purpose of:: To decrease pain, To increase ROM, To improve muscle performance and motor function, To increase tolerance to activity/condition/position and To improve ability of physical actions for home/community/work/leisure Text: Thank you for the opportunity to evaluate your patient. For Medicare and Medicare HMO plans, please review the plan of care and approve it. It will need to be FAXED BACK to us at [phone] for Medicare purposes. For Medicare only, by signing this I certify the plan of care. Please let me know if there are questions or concerns regarding this plan of care. Physician Signature: Date:
--- NOTE | 2023-08-02 08:54 | HP.PTREVAL ---
Re-Evaluation Intro: Dr. Zoë Reyes, DO, It has been my pleasure to treat DENNIS TEMPLE over the last 2 visits for CERVICAL RADICULOPATHY. Please see the progress note below for an update on the physical therapy plan of care! Subjective Subjective: PATIENT REPORTS HIS SX'S ARE STAYING THE SAME OVER-ALL - THE INTENSITY IS THE SAME BUT MAYBE HAVING IT LESS OFTEN. PATIENT REPORTS HE STILL CAN NOT LAY DOWN. WHEN HE TRIES WITHIN 5 MINUTES HE GETS BURNING PAIN IN HIS LEFT ARM. 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 STATES HE HAD TO TAKE AN IBUPROFEN LAST NIGHT TO GET SOME REST EVEN IN THE CHAIR. STILL GETTING INTERMITTENT NUMBNESS AND TINGLING DOWN L ARM INTO HAND AND LAST TWO FINGERS. NO PAIN OR NUMBNESS SINCE ABOUT 4AM TODAY. Patient is giving further history: Pain started about 4pm the night before pain started while camping. Also recalls doing a tremendous amount of squeezing to set a trap before going camping. Objective Objective/Function: UPON TESTING TODAY L UE SX'S ARE EASILY PROVOKE IN LESS THAN ONE MINUTE IN SUPINE LYING AND UNABLE TO BE ABOLISHED WITH ANY TREATMENT INCLUDING CERVICAL DISTRACTION IN SITTING, SCAPULAR RETRACTION OR CERVICAL POSITION ANY PLANE. THORACIC OUTLET TESTING APPEARS TO BE NEGATIVE BUT DIFFICULT TO R/O COMPLETELY DUE TO HIGHLY IRRITABLE SX'S. PATIENT IS ABLE TO FULLY ELEVATE L UE AND ELEVATION OF L UE DOES NOT INCREASE C/O UE SX'S. CERVICAL ROM TESTING INTO FLEXION AND EXTENSION PROVES L UE BURING INTO UPPER AND LOWER ARM. HAND SX'S NOT PROVOKED TODAY. PALPATION THROUGHOUT UPPER THORACIC, CERVICAL, OCCIPUT, L SCAP, L COLLAR BONE AND HUMERUS DO NOT INCREASE C/O UE SX'S. HE DOES HAVE TENDERNESS IN THE L PEC THOUGH. PHYSICIAN RE-ASSESSMENT FOR FURTHER MEDICATION, TESTING OF NECK/SHLD/CHEST AND/OR SPECIALIST CONSULT RECEOMMENDED. PATIENT AGREEABLE. Plan Plan Plan: FURTHER ASSESSMENT OF SX'S NEXT VISIT. POSTURE CORRECTION/STRENGTHENING, INSTRUCTION IN APPROPRIATE BODY MECHANICS AND ACTIVITY MODIFICATIONS. MAL UE ROM, STRETCHING AND STRENGTHENING. HEP INSTRUCTION. Balance/Gait/Functional tests Balance/Special Test Scores Oswestry Neck Score: 23 Goals Goals Goal 1:: DECREASE C/O NECK AND L UE SX'S BY 50% Goal Time Frame: 4-6 Weeks Goal 2:: IMPROVE PERSONAL CARE, LIFTING, READING, SLEEP, WORK, DRIVING AND RECREATIONAL FUNCTION Goal Time Frame: 4-6 Weeks Goal 3:: INSTRUCT IN PROPHYLAXIS Goal Time Frame: 4-6 Weeks Anticipated Interventions Anticipated Interventions Patient/Client Instruction: Educate patient on: Condition, Plan of Care and Risk Factors For the Purpose of:: To improve self management Therapeutic Exercise to Include: Strength training, Body mechanics, Postural training, Flexibilty training, Neuromotor development and Scapular Strength/Stabilization For the Purpose of:: To decrease pain, To increase ROM, To improve muscle performance and motor function, To increase tolerance to activity/condition/position and To improve ability of physical actions for home/community/work/leisure Re-Evaluation Ending Re-evaluation ending: Please do not hesitate to contact me at [phone] by phone or if you have questions or concerns regarding this new plan of care! Sincerely, Flavia Liu, PT, Cert MDT
--- NOTE | 2023-09-20 12:37 | HP.PTREVAL ---
Re-Evaluation Intro: Dr. Zoë Reyes, DO, It has been my pleasure to treat DENNIS TEMPLE over the last 7 visits for CERVICAL RADICULOPATHY. Please see the progress note below for an update on the physical therapy plan of care! Subjective Subjective: HAD MRI - THE DOCTOR JUST SAID THERE IS A LOT OF ARTHRITIS. PATIENT REPORTS HE HASN'T HAD ANY L UE SX'S AND ONLY MILD R NECK PAIN WITH TURNING HIS HEAD TO THE RIGHT. THE PAIN IS INTERMITTENT AND ONLY AT THE END OF THE RANGE. PATIENT REPORTS AT LEAST A YEAR HISTORY OF INTERMITTENT R NECK PAIN. HE REPORTS THE L UE PAIN THAT CAME ON SUDDENLY AND BROUGHT HIM HERE TO PT IS COMPLETELEY GONE - 100% BETTER. Objective Objective/Function: PATIENT WAS SEEN TODAY FOR RE-ASSESSMENT OF PROGRESS TOWARD THE SET PT GOALS AND THE NEED FOR FURTHER PHYSICAL THERAPY VS READINESS FOR DISCHARGE. PATIENTS L UE SX'S HAVE RESOLVED AND PATIENT NOW ONLY HAS C/O MILD R NECK PAIN AT THE END OF THE AVAILBLE ROM INTO R NECK ROTATION. HE IS INDEP WITH A HEP AND HAS PAIN MGMT CONSULT PENDING. UPON EXAM TODAY: Sensory deficit: MAL UE LIGHT TOUCH SENSATION GROSSLY INTACT AND SYMMETRICAL ROM deficit: MAL UE'S WFL WITHOUT C/O PAIN WITH TESTING. 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 L UE: SHLD 4/5, ELBOW 5/5, INCIDENT RESPONSE SPECIALIST 40 LBS. PATIENT DENIES PAIN WITH TESTING. Dural Signs: NEGATIVE MAL UE'S. Cervical Mvmt Loss: Flex: NIL Pro: NIL Ext: MOD Ret: MOD RSB: MOD LSB: MOD R Rot: MOD L Rot: MIN PATIENT C/O MILD R NECK PAIN AT THE END OF THE AVAILABLE ROM INTO R NECK ROTATION WITH TESTING THAT GETS BETTER WITH REPETITION. Plan Plan Plan: HOLD CHART. DISCUSSED DISCHARGE. PATIENT PLANS TO FOLLOW UP WITH PAIN MGMT CONSULT AND CONTINUE HEP. HE WILL CALL BACK TO [facility] FURTHER PT IF NEEDED/RECOMMENDED AFTER PAIN MGMT CONSULT. Balance/Gait/Functional tests Balance/Special Test Scores Oswestry Neck Score: 7 Goals Goals Goal 1:: DECREASE C/O NECK AND L UE SX'S BY 50% Goal Time Frame: 4-6 Weeks Goal Progress: Goal Met Goal 2:: IMPROVE PERSONAL CARE, LIFTING, READING, SLEEP, WORK, DRIVING AND RECREATIONAL FUNCTION Goal Time Frame: 4-6 Weeks Goal Progress: Goal Met Goal 3:: INSTRUCT IN PROPHYLAXIS Goal Time Frame: 4-6 Weeks Goal Progress: Progressing Anticipated Interventions Anticipated Interventions Patient/Client Instruction: Educate patient on: Condition, Plan of Care and Risk Factors For the Purpose of:: To improve self management Therapeutic Exercise to Include: Strength training, Body mechanics, Postural training, Flexibilty training, Neuromotor development and Scapular Strength/Stabilization For the Purpose of:: To decrease pain, To increase ROM, To improve muscle performance and motor function, To increase tolerance to activity/condition/position and To improve ability of physical actions for home/community/work/leisure Re-Evaluation Ending Re-evaluation ending: Please do not hesitate to contact me at [phone] by phone or if you have questions or concerns regarding this new plan of care! Sincerely, Flavia Liu, PT, Cert MDT
--- NOTE | 2024-01-28 15:58 | HP.PTDCNRP_ITS ---
Patient Information Patient Information: DENNIS TEMPLE was seen in my office for initial evaluation on 07/26/23. The following Plan of Care was established for this patient: POC Established Initial Frequency: 2-3x /Week Initial Duration: 4-6 Weeks Anticipated Interventions Patient/Client Instruction: Educate patient on: Condition, Plan of Care and Risk Factors For the Purpose of:: To improve self management Therapeutic Exercise to Include: Strength training, Body mechanics, Postural training, Flexibilty training, Neuromotor development and Scapular Strength/Stabilization For the Purpose of:: To decrease pain, To increase ROM, To improve muscle performance and motor function, To increase tolerance to activity/condi tion/position and To improve ability of physical actions for home/community/work/leisure Last Seen Last Seen: This patient was last seen in our office 09/20/23. Pertinent comments regarding their Physical therapy will appear below: This patient has not returned to Physical Therapy and is appropriate to return to MD for further follow-up as needed. At this point I will be discontinuing this patient from physical therapy. I would be happy to see this patient again in the future if found appropriate by the physician. Thank you! Flavia Liu, PT, Cert MDT Balance/Gait/Functional tests Balance/Special Test Scores Oswestry Neck Score: 7
== END 2023-09-20 19:00 | disposition home or self-care (01) ==
LOC: PT 09:00
PROVIDERS: PCP Internal Medicine; Visit Provider Internal Medicine
DX: M54.12 Radiculopathy, cervical region (principal)
CPT/HCPCS: 97035; 97112; 97140; 97162; 97164; 97530

== ENCOUNTER → 2023-10-22 | Outpatient (CLI) | payer MEDICARE, OTHER, SELFPAY ==
--- NOTE | 2023-10-22 07:45 | US_ITS ---
STUDY: ABDOMINAL ULTRASOUND - RIGHT UPPER QUADRANT; ELASTOGRAPHY REASON FOR VISIT: Male, 73 years old. NAFLD TECHNIQUE: Ultrasound evaluation of the right upper quadrant was performed with real-time and static mullins-scale imaging. Point quantification shear wave elastography was performed ([place]). TECHNICAL QUALITY: Adequate. COMPARISON: Comparison is made with prior study dated September 19, 2022. FINDINGS: Liver: The liver measures 16.1 cm. There is normal echogenicity of the liver. The bile ducts are within normal limits. There is hepatic color flow. The direction of portal flow is hepatopetal. There is no demonstrated mass lesion. Median liver stiffness measured 9.4 kPa. Gallbladder: Normal distended gallbladder. The gallbladder wall measures 2.0 mm. There is a negative sonographic Henderson''s sign. There is no pericholecystic fluid. There are no gallstones. Common Bile Duct (C.B.D.): The common bile duct measures 4.0 mm. Pancreas: There is normal echogenicity of the visualized pancreas. There is no demonstrated pancreatic mass or cyst. Right Kidney: Normal size of the right kidney. The right kidney measures 10.5 cm x 6.4 cm x 5.9 cm. Normal renal cortex. The right cortex measures 1.5 cm. There is no demonstrated renal mass or cyst. There is no right hydronephrosis. US/ABD Limited w/ Elastography IMPRESSION: 1. Liver stiffness measures 9.4 kPa compatible with F2-F3 (Mild to moderate liver fibrosis) Metavir score. Electronically Signed: Catracho Andrew MD at 10:39 EST ,
== END | disposition home or self-care (01) ==
LOC: US 07:45
PROVIDERS: PCP Internal Medicine; Referring Provider Internal Medicine; Visit Provider Internal Medicine
DX: K76.0 Fatty (change of) liver, not elsewhere classified (principal)
CPT/HCPCS: 76705; 76981

== ENCOUNTER → 2024-10-27 | Outpatient (CLI) | payer MEDICARE, OTHER, SELFPAY ==
--- NOTE | 2024-10-27 07:03 | ECHOD_ITS ---
Reason For Study: CORONARY ARTERY DISEASE Procedure This was a 2D Doppler, Color Flow transthoracic echocardiogram. Exam performed in department. Left Ventricle Normal LV size. Left ventricular systolic function is normal. The left ventricular ejection fraction is 60 %. No regional wall motion abnormalities noted. Right Ventricle Normal RV size. Normal systolic function. Atria Normal left atrium. Normal right atrium. Mitral Valve Normal mitral valve. Tricuspid Valve Normal tricuspid valve. Mild (1+) tricuspid valve insufficiency. Pulmonary artery systolic pressure is 30 mmHg. Aortic Valve Trisinus/trileaflet aortic valve. Pulmonic Valve Normal pulmonic valve. Great Vessels Normal aortic root. The pulmonary artery is normal size. Inferior vena cava collapse with respiration. Pericardium/Pleural No pericardial effusion. MMode/2D Measurements & Calculations LVIDd: 4.1 cm IVSd: 1.1 cm LVOT diam: 2.0 cm LVIDs: 2.2 cm LVPWd: 1.1 cm LVOT area: 3.0 cm2 RVDd: 3.9 cm FS: 45.3 % asc Aorta Diam: 3.2 cm LAV(MOD-bp): 43.7 ml LVAd ap4: 22.7 cm2 LAV(MOD-bp) Indexed: 21.1 ml/m2 LVLd ap4: 7.9 cm LAV(MOD-sp2): 46.4 ml EDV(MOD-sp4): 55.3 ml LAV(MOD-sp4): 36.4 ml EDV(sp4-el): 55.4 ml LVAs ap4: 13.1 cm2 LVLs ap4: 6.4 cm ESV(MOD-sp4): 22.3 ml ESV(sp4-el): 22.8 ml EF(MOD-sp4): 59.7 % EF(sp4-el): 58.9 % LVAd ap2: 21.6 cm2 SV(MOD-sp4): 33.0 ml SV(MOD-sp2): 31.5 ml LVLd ap2: 7.2 cm SI(MOD-sp4): 15.9 ml/m2 SI(MOD-sp2): 15.2 ml/m2 EDV(MOD-sp2): 54.8 ml EDV(sp2-el): 55.5 ml LVAs ap2: 13.0 cm2 LVLs ap2: 6.3 cm ESV(MOD-sp2): 23.3 ml ESV(sp2-el): 22.7 ml EF(MOD-sp2): 57.5 % SV(sp4-el): 32.6 ml Ao sinus diam: 3.[address] Junction: 2.9 cm LA dimension(2D): 3.3 cm LA A4 area: 13.8 cm2 RA A4 area: 9.3 cm2 TAPSE: 1.7 cm Time Measurements MV dec time: 0.16 sec Doppler Measurements & Calculations MV E max chase: 82.4 cm/sec Lat Peak E' Chase: 10.0 cm/sec Med Peak E' Chase: 7.8 cm/sec MV A max chase: 100.3 cm/sec E/E' lat: 8.2 E/E' med: 10.5 MV E/A: 0.82 MV dec slope: 521.2 cm/sec2 Ao V2 max: 105.6 cm/sec LV V1 max: 89.9 cm/sec Ao max P.5 mmHg LV V1 max P.2 mmHg Ao V2 mean: 81.5 cm/sec LV V1 mean P.0 mmHg Ao mean P.8 mmHg LV V1 mean: 67.9 cm/sec Ao V2 VTI: 20.9 cm LV V1 VTI: 16.1 cm AV (velocity ratio): 0.77 GREGORY(I,D): 2.3 cm2 GREGORY(V,D): 2.6 cm2 SV(LVOT): 48.8 ml PA V2 max: 122.1 cm/sec TR max chase: 258.8 cm/sec TR max P.8 mmHg ECHO/Echo Complete Interpretation Summary Normal LV size. Left ventricular systolic function is normal. The left ventricular ejection fraction is 60 %. Mild (1+) tricuspid valve insufficiency. Ordering Physician: Jhony Cosby Referring Physician: Zoë Reyes M.D. Performed By: Zaira Higgins RDCS
--- NOTE | 2024-10-27 17:11 | STRESSREP_ITS ---
Stress Test Report Exercise myocardial perfusion stress test. 74-year-old man with a history of coronary artery disease Stress protocol: Resting EKG demonstrates normal sinus rhythm with a rate of 83 bpm resting blood pressure is 132/88 mmHg. The patient exercised according to the regular Baltazar protocol for a total duration of 5 minutes and 30 seconds attaining a maximum heart rate of 151 bpm which was 104% of maximum predicted heart rate; the maximum workload was 7 metabolic equivalents. At rest there were no ST or T wave changes noted to suggest ischemia and at peak exercise upsloping ST changes only were noted which did not meet the criteria for ischemia. No clinical angina was noted the test was terminated due to the target heart rate being ach ieved/fatigue. The peak blood pressure was 202/92 mmHg. Rate-pressure product was 30,500. Myocardial perfusion protocol. 10.8 mCi of technetium 99m sestamibi was injected at rest. The patient exer cised according to regular Baltazar protocol for total duration of 5-1/2 minutes and at peak exercise 34.2 mCi of technetium 99m sestamibi was injected stress images were obtained stress and rest images were reconstructed in comparing the short axis vertical long and horizontal long axis. Gated images were also obtained. Perfusion SPECT analysis: Review of the stress images demonstrate normal uptake of tracer noted in all areas of the myocardium. The resting images similarly demonstrate normal uptake of tracer noted in all areas of the myocardium. No areas of reversibility are noted to suggest ischemia no previous infarct was noted. Gated SPECT analysis: The gated ejection fraction is 55%. Conclusion: Normal exercise myocardial perfusion stress test at a moderate workload Preserved ejection fraction.
== END | disposition home or self-care (01) ==
LOC: CVS 06:59
PROVIDERS: PCP Internal Medicine; Referring Provider Internal Medicine Cardiovascular Disease; Visit Provider Internal Medicine Cardiovascular Disease
DX: I25.10 Atherosclerotic heart disease of native coronary artery without angina pectoris (principal); Z95.1 Presence of aortocoronary bypass graft
CPT/HCPCS: 78452; 93017; 93306; A9500; A4216